=== PATIENT | female | born 1965 | race Caucasian/White ===

== ENCOUNTER 2017-03-15 11:16 | Day surgery (SDC) | payer MEDICARE, OTHER ==
[2017-03-14 10:04] VITALS: BMI 32.9
[~2017-03-15 11:16] MED LIST: LACTATED RINGERS 1,000 ML IV SCH; LIDOCAINE 1% 20 ML VIAL (10MG/ML) FOR IV START INTRADERMA PRN
[2017-03-15 11:44] VITALS: TEMP 98.9
[2017-03-15] MEDS ORDERED: PROPOFOL 10 MG/ML 20 ML VIAL IV ONE (12:31)
--- NOTE | 2017-03-15 12:38 | P.GSHP ---
History of Present Illness H&P Date: 03/15/17 Chief Complaint: Change in bowel habits Patient is a 51-year-old female who underwent previous Munson's procedure for diverticulitis. The patient underwent colostomy reversal with subsequent leak. She then underwent replacement of her colostomy bag at that time. The patient has had complaints of swelling at the ostomy site recently. She has a parastomal hernia present there. She is interested in ostomy reversal if possible. Denies rectal bleeding. Past Medical History Past Medical History: Chest Pain / Angina, Deep Vein Thrombosis (DVT), GERD/ Reflux, Hyperlipidemia, Hypertension, Myocardial Infarction ([place]), Rheumatoid Arthritis ([place]) Additional Past Medical History / Comment(s): DIVERTICULITIS," SORE ON STOMA AREA" Last Myocardial Infarction Date:: 2009 History of Any Multi-Drug Resistant Organisms: None Reported Past Surgical History: Bowel Resection, Heart Catheterization With Stent, Hysterectomy, Tonsillectomy Additional Past Surgical History / Comment(s): COLOSTOMY X2, reversal of colostomy Past Anesthesia/Blood Transfusion Reactions: No Reported Reaction Date of Last Stent Placement:: 2009 Smoking Status: Current every day smoker - Past Family History Mother Family Medical History: Cancer Father Family Medical History: Cancer Medications and Allergies Home Medications Medication Instructions Recorded Confirmed Type Famotidine [Pepcid] 20 mg PO BID #60 tab 10/15/14 03/15/17 Rx Metoprolol Tartrate [Lopressor] 25 mg PO BID #60 tab 10/22/14 03/15/17 Rx Omeprazole 40 mg PO QAM #30 capsule. 10/22/14 03/15/17 Rx Aspirin 81 mg PO DAILY 03/14/17 03/15/17 History Allergies Allergy/AdvReac Type Severity Reaction Status Date / Time Penicillins Allergy Unknown Verified 03/15/17 11:45 Childhood Surgical - Exam Vital Signs Temp Pulse Resp BP Pulse Ox 98.9 F 101 H 18 147/86 95 03/15/17 11:42 03/15/17 11:42 03/15/17 11:42 03/15/17 11:42 03/15/17 11:42 Physical exam: General: Well-developed, well-nourished HEENT: Normocephalic, sclerae nonicteric Abdomen: Nontender, nondistended Extremities: No edema Neuro: Alert and oriented Results - Labs 03/15/17 11:55 03/15/17 11:55 Diabetes panel 03/15/17 Range/Units 11:55 Sodium 141 (137-145) mmol/L Potassium 3.9 (3.5-5.1) mmol/L Chloride 103 (98-107) mmol/L Carbon Dioxide 27 (22-30) mmol/L BUN 12 (7-17) mg/dL Creatinine 0.70 (0.52-1.04) mg/dL Glucose 98 (74-99) mg/dL Calcium 9.8 (8.4-10.2) mg/dL Calcium panel 03/15/17 Range/Units 11:55 Calcium 9.8 (8.4-10.2) mg/dL Pituitary panel 03/15/17 Range/Units 11:55 Sodium 141 (137-145) mmol/L Potassium 3.9 (3.5-5.1) mmol/L Chloride 103 (98-107) mmol/L Carbon Dioxide 27 (22-30) mmol/L BUN 12 (7-17) mg/dL Creatinine 0.70 (0.52-1.04) mg/dL Glucose 98 (74-99) mg/dL Calcium 9.8 (8.4-10.2) mg/dL Adrenal panel 03/15/17 Range/Units 11:55 Sodium 141 (137-145) mmol/L Potassium 3.9 (3.5-5.1) mmol/L Chloride 103 (98-107) mmol/L Carbon Dioxide 27 (22-30) mmol/L BUN 12 (7-17) mg/dL Creatinine 0.70 (0.52-1.04) mg/dL Glucose 98 (74-99) mg/dL Calcium 9.8 (8.4-10.2) mg/dL Assessment and Plan (1) Change in bowel habits Narrative/Plan: Will proceed with colonoscopy today. Both stoma and rectum will be intubated. Tentatively plan colostomy reversal tomorrow. Current Visit: Yes Status: Acute Code(s): R19.4 - CHANGE IN BOWEL HABIT SNOMED Code(s): 575596670
--- NOTE | 2017-03-15 12:58 | P.PCN ---
Date of Procedure: 03/15/17 Procedure(s) Performed: PREOPERATIVE DIAGNOSIS: Change in bowel habits, diverticulitis POSTOPERATIVE DIAGNOSIS: Normal colon PROCEDURE: Colonoscopy ANESTHESIA: MAC SURGEON: Ray Alex M.D. SPECIMENS: None ENDOSCOPIC PROCEDURE: The patient was placed on the endoscopy table in the left decubitus position. The Olympus colonoscope was inserted into the anus and passed under direct visualization to the proximal rectal staple line. There was minimal disuse proctitis present. There was some residual stool that was evacuated manually. No polypoid lesions were identified. The scope was then inserted into the stoma and passed under direct visualization to the base of the cecum. From that point the scope was slowly withdrawn inspecting all mucosal surfaces carefully. There were no neoplastic inflammatory or polypoid lesions throughout the cecum, ascending, transverse, or descending colon. I was unable to visualize any definite diverticular orifices. At the anus the patient did have a small hemorrhoidal tag present. This measured less than 1 cm. The patient was taken to the recovery room in stable condition per anesthesia guidelines. RECOMMENDATIONS: Will proceed with planned colostomy reversal tomorrow.
[2017-03-15 13:21] VITALS: RESP 15
[2017-03-15 13:28] VITALS: BP 115/72; PULSE 85
== END 2017-03-15 14:16 | disposition home or self-care (01) ==
LOC: ORWHC2ENDO 11:16
PROVIDERS: ATTEND Surgery
DX: K64.4 Residual hemorrhoidal skin tags (principal); K62.89 Other specified diseases of anus and rectum; R19.4 Change in bowel habit; K43.5 Parastomal hernia without obstruction or gangrene; Z93.3 Colostomy status; M06.9 Rheumatoid arthritis, unspecified; I10 Essential (primary) hypertension; E78.5 Hyperlipidemia, unspecified; K21.9 Gastro-esophageal reflux disease without esophagitis; Z95.5 Presence of coronary angioplasty implant and graft; I25.2 Old myocardial infarction; Z86.718 Personal history of other venous thrombosis and embolism; Z79.82 Long term (current) use of aspirin; Z79.899 Other long term (current) drug therapy; Z88.0 Allergy status to penicillin; F17.210 Nicotine dependence, cigarettes, uncomplicated
CPT/HCPCS: 44388; J2704; 45378

== ENCOUNTER 2017-08-19 15:12 | Inpatient (IN) | payer MEDICARE, OTHER ==
[2017-08-19] MEDS ORDERED: MORPHINE SULFATE 2 MG/ML SYRINGE IVP STA (15:49)
[2017-08-19] MEDS ORDERED: ONDANSETRON ODT 4 MG TAB PO STA (15:49)
[2017-08-19] MEDS ORDERED: methylPREDNISolone SOD SUCCI 125 MG/2 ML VIAL IV STA (15:51)
[2017-08-19] MEDS ORDERED: IPRATROPIUM-ALBUTEROL 3 ML NEB INHALATION STA (15:51)
[2017-08-19] MEDS ORDERED: SODIUM CHLORIDE 0.9% 1,000 ML IV ONE ×3 (15:52→16:57)
--- NOTE | 2017-08-19 15:57 | ED ---
Chest Pain HPI - General Chief Complaint: Chest Pain Stated Complaint: Chest Pain Time Seen by Provider: 08/19/17 15:37 Source: patient Mode of arrival: wheelchair Limitations: no limitations - History of Present Illness Initial Comments: 52-year-old female presenting with acute onset lightheadedness, right-sided flank pain, nausea and vomiting, substernal chest pressure and shortness of breath. She states her symptoms awoke her from sleep at 4:30 AM. States she may have been constant all day. She denies any alleviating or exacerbating symptoms. States the chest pain is accompanied by bilateral hand numbness, which is similar to a previous [place] in 2009. He is unable to quantify the amount of episodes of emesis she has had. She states she is passing gas and having bowel movements. She denies any black or bloody stools. Patient states she has not had a primary care physician in the past 3 months and has been unable to take her chronic medications. She admits to previous history of DVT and is unsure Sever had a PE. She is unsure she's was to be on anticoagulation medicine. She admits a history of COPD and is currently still smoking. She has been out of her inhalers as well. She denies previous history of intubation. - Related Data Home Medications Medication Instructions Recorded Confirmed Aspirin EC [Ecotrin Low Dose] 81 mg PO DAILY 08/19/17 08/19/17 Cilostazol [Pletal] 50 mg PO BID 08/19/17 08/19/17 Docusate [Colace] 100 mg PO BID 08/19/17 08/19/17 HYDROcodone/APAP 10-325MG [[place] 1 tab PO Q6HR PRN 08/19/17 08/19/17 10-325] Hydrochlorothiazide [Hydrodiuril] 25 mg PO DAILY 08/19/17 08/19/17 Meloxicam [Mobic] 7.5 mg PO DAILY 08/19/17 08/19/17 Polyethylene Glycol 3350 [Miralax] 17 gm PO DAILY 08/19/17 08/19/17 Rosuvastatin [Crestor] 10 mg PO HS 08/19/17 08/19/17 Previous Rx's Medication Instructions Recorded Famotidine [Pepcid] 20 mg PO BID #60 tab 10/15/14 Metoprolol Tartrate [Lopressor] 25 mg PO BID #60 tab 10/22/14 Allergies Allergy/AdvReac Type Severity Reaction Status Date / Time amoxicillin Allergy Unknown Verified 08/19/17 15:53 Childhood Penicillins Allergy Unknown Verified 08/19/17 15:53 Childhood Review of Systems ROS Statement: Those systems with pertinent positive or pertinent negative responses have been documented in the HPI. Review of Systems Constitutional: Denies fever, chills Eyes: Denies change in vision, Denies pain Ears, nose, mouth, throat: Denies headaches, Denies sore throat Cardiovascular: Chest pain Respiratory: Shortness of breath Gastrointestinal: Abdominal Pain. Nausea and vomiting. Genitourinary: Denies hematuria, Denies infections Musculoskeletal: Denies pain, Denies swelling Integumentary: Denies rash Neurological: Denies headache, focal weakness, focal numbness Psychiatric: Denies anxiety, Denies depression Hematologic/Lymphatic: Denies easy bleeding or bruising ROS Other: All systems not noted in ROS Statement are negative. EKG Findings - EKG Comments: EKG Findings:: EKG shows sinus tachycardia at a rate of 107 bpm. MA 144 ms. QRS duration 88 ms. QT/QTc 372/496. - EKG Results: EKG: interpreted by DAISY Past Medical History Past Medical History: Chest Pain / Angina, Deep Vein Thrombosis (DVT), GERD/ Reflux, Hyperlipidemia, Hypertension, Myocardial Infarction ([place]), Rheumatoid Arthritis ([place]) Additional Past Medical History / Comment(s): DIVERTICULITIS," SORE ON STOMA AREA" Last Myocardial Infarction Date:: 2009 History of Any Multi-Drug Resistant Organisms: None Reported Past Surgical History: Bowel Resection, Heart Catheterization With Stent, Hysterectomy, Tonsillectomy Additional Past Surgical History / Comment(s): COLOSTOMY X2, reversal of colostomy Past Anesthesia/Blood Transfusion Reactions: No Reported Reaction Date of Last Stent Placement:: 2009 Past Psychological History: Anxiety, Depression, Panic Disorder Smoking Status: Current every day smoker - Past Family History Mother Family Medical History: Cancer Father Family Medical History: Cancer General Exam - General Exam Comments Initial Comments: General: Awake, alert, ill appearing HENT: Normocephalic. Atraumatic Eyes: PERRL. EOMI. No scleral icterus. No injected conjunctiva Neck: Full ROM Chest/Lungs: Wheezing bilaterally. Tachypnea. Two-word conversational dyspnea. Cardiac: Tachycardic Regular rhythm. No murmurs or rubs Abdomen/GI: Soft. Diffuse tenderness. Multiple scars and healing surgical wounds. No rigidity or guarding when distracted Musculoskeletal: Full ROM Skin: Warm, dry, intact Neurologic: A/Ox3, no weakness, no sensory deficit, no abdnormal gait, no coordination deficit Limitations: no limitations Course Vital Signs 08/19/17 08/19/17 08/19/17 15:17 17:23 17:33 Temperature 98.4 F Pulse Rate 111 H 93 95 Respiratory 22 Rate Blood Pressure 144/64 O2 Sat by Pulse 100 Oximetry 08/19/17 18:17 Temperature 99.1 F Pulse Rate 107 H Respiratory 18 Rate Blood Pressure 148/65 O2 Sat by Pulse 96 Oximetry Chest Pain MDM - MDM 52-year-old female presenting with multiple complaints. Initial exam the patient is ill-appearing. She is tachycardic but her blood pressure stable. EKG shows sinus tachycardia at a rate of 107 bpm. Wells score 3. D dimer elevated. Patient found to have an elevated troponin. Discussed heparin infusion with patient for NSTEMI. She denies any recent black or bloody stools, previous history of GI bleeding, or hematemesis. Patient's nausea and chest pain improved with medications. Levofloxacin ordered at 1715 for sepsis secondary CAP and/or intraabdominal process. Vancomycin ordered for abdominal cellulitis. Patient has unknown PCN allergy. [address] showed no evidence of pulmonary embolism. No intraabominal abscess seen. A fusiform appearance of the aorta was noted with the largest diameter being 2.5. The heparin was d/c'd. Patient had not received it yet. Spoke with Dr. Mendez who is agreeable to admission with cardiology and vascular surgery on consult. Patient is currently resting comfortably and in NAD. Her tachypnea and emesis have resolved. Disposition Clinical Impression: Sepsis, NSTEMI (non-ST elevated myocardial infarction), Lactic acidosis, Shortness of breath, Cellulitis, Ascending aorta dilation Disposition: ADMITTED IP TO THIS HOSP Condition: Good Referrals: None,Stated [Primary Care Provider] - 1-2 days Decision to Admit Reason: Admit from EC Decision Date: 08/19/17 Decision Time: 18:41
[2017-08-19] MEDS ORDERED: MORPHINE SULFATE 2 MG/ML SYRINGE IVP PRN (16:02)
[2017-08-19] MEDS ORDERED: ONDANSETRON 4 MG/2 ML VIAL IVP STA (16:05)
[2017-08-19 16:14] LABS: Anisocytosis Slight; Basophils % (A) 0 %; Eosinophils % (A) 0 %; HCT 40.3 % (34.0-46.0); HGB 13.3 gm/dL (11.4-16.0); Lymphocytes # (A) 1.2 k/uL (1.0-4.8); Lymphocytes % (A) 11 %; MCH 27.9 pg (25.0-35.0); MCV 84.5 fL (80.0-100.0); Mean Platelet Volume 7.2; Monocytes # (A) 0.3 k/uL (0-1.0); Monocytes % (A) 3 %; Neutrophils # (A) 9.5 k/uL (1.3-7.7); Neutrophils % (A) 85 %; Platelet Count 321 k/uL (150-450); RBC 4.77 m/uL (3.80-5.40); WBC 11.2 k/uL (3.8-10.6)
[2017-08-19 16:20] LABS: ALT 26 U/L (9-52); AST 25 U/L (14-36); Albumin 4.6 g/dL (3.5-5.0); Alkaline Phosphatase 104 U/L (38-126); Anion Gap 16 mmol/L; Bilirubin, Delta 0.3 mg/dL (0.0-0.2); Blood Urea Nitrogen 17 mg/dL (7-17); Calcium 9.9 mg/dL (8.4-10.2); Carbon Dioxide 22 mmol/L (22-30); Chloride 103 mmol/L (98-107); Glucose 148 mg/dL (74-99); Lipase 43 U/L (23-300); Magnesium 1.7 mg/dL (1.6-2.3); Sodium 141 mmol/L (137-145); Total Bilirubin 0.3 mg/dL (0.2-1.3); Total Protein 7.6 g/dL (6.3-8.2)
[2017-08-19] MEDS ORDERED: MECLIZINE 12.5 MG TAB PO STA (16:56)
[2017-08-19] MEDS ORDERED: ASPIRIN 325 MG TAB PO STA (16:57)
[2017-08-19] MEDS ORDERED: HEPARIN SODIUM,PORCINE 5,000 UNIT/ML 1 ML VIAL IV ONE (16:58)
[2017-08-19] MEDS ORDERED: HEPARIN SODIUM,PORCINE 5,000 UNIT/ML 1 ML VIAL IV PRN (16:58)
[2017-08-19] MEDS ORDERED: HEPARIN SOD,PORK IN 0.45% NACL 25,000 UNIT in 0.45% NACL 1 500ML.BAG IV SCH (17:00)
[2017-08-19] MEDS ORDERED: LEVOFLOXACIN 750MG-D5W PMX 750 MG in DEXTROSE/WATER 1 150ML.BAG IVPB STA (17:12)
[2017-08-19] MEDS ORDERED: VANCOMYCIN IV PER PHARMACY 1 EACH MISC MISCELLANE PRN ×2 (17:17→18:41)
--- NOTE | 2017-08-19 17:24 | XR ---
EXAMINATION TYPE: XR chest 2V DATE OF EXAM: 08/19/2017 COMPARISON: 80 10/15/2014 INDICATION: Pain TECHNIQUE: Frontal and lateral views of the chest are obtained. FINDINGS: The heart size is normal. The pulmonary vasculature is normal. The lungs are clear. IMPRESSION: 1. No acute pulmonary process.
--- NOTE | 2017-08-19 17:39 | CT ---
CT CHEST FOR PULMONARY EMBOLISM. EXAMINATION TYPE: CT angio chest DATE OF EXAM: 08/19/2017 INDICATION: Patient complains of dizziness and chest pain. CT DLP: 328.2 mGycm, Automated exposure control for dose reduction was used. CONTRAST: Patient injected with 100 mL of Isovue 370. COMPARISON: 09/22/2014 TECHNIQUE: CT of the chest is performed on a spiral scan at 2 mm thick sections. Study is performed with intravenous contrast timed for evaluation for pulmonary embolism. This will limit additional po rtions of the evaluation. 3-D MIP images reconstructed by the technologist are reviewed on the compu ter in the coronal and sagittal planes. FINDINGS: No persistent filling defects are evident to suggest an acute pulmonary embolism. No mediastinal or hilar adenopathy enlarged by CT criteria is evident. The ascending aorta diameter at the level of the main pulmonary artery is 2.8 cm. The main pulmonary artery diameter at the bifur cation is 2.8 cm. Lung windows are clear. Limited CT section through the upper abdomen are unremarkable. IMPRESSIONS: 1. No acute pulmonary embolism.
--- NOTE | 2017-08-19 17:44 | CT ---
EXAMINATION TYPE: CT abdomen pelvis w con DATE OF EXAM: 08/19/2017 COMPARISON: NONE INDICATION: Patient complains of dizziness, nausea, vomiting, and abdominal pain. DLP: 1368.1 mGycm, Automated exposure control for dose reduction was used. CONTRAST: 100 mL of Isovue 370. Study performed without Oral Contrast TECHNIQUE: Axial images were obtained from above the diaphragm to the pubic rami in the axial plane a t 5 mm thick sections. Reconstructed images are reviewed on the computer in the coronal plane. FINDINGS: Limited CT sections are obtained the lung bases. The lung bases are clear. CT ABDOMEN: Liver: Normal Spleen: Normal Pancreas: Normal Adrenal glands: Left adrenal gland is enlarged and measures 1.8 cm and has a low-density area central ly measuring approximately 9 Hounsfield units. This was present previously and appears stable. Gallbladder: Normal Kidneys: No masses are evident. No hydronephrosis is present. No cysts are present. Delayed images were obtained through the kidneys, which remain unremarkable. Aorta: Vascular calcification is within the aorta. There is some fusiform prominence of the mid abdo shiraz aorta measuring 2.5 cm in AP dimension. This terminates above the bifurcation and begins below the level the renal arteries. Inferior vena cava: Normal. CT PELVIS: Loops of bowel within the abdomen and pelvis are normal. There are loops of bowel which are incom pletely distended or lack oral contrast limiting their evaluation. Appendix: Not identified. No suspicious tubular structures are evident. Urinary bladder: Normal. Genitourinary structures: Uterus and ovaries are not identified. Osseous structures: No suspicious lytic or sclerotic lesions. IMPRESSIONS: 1. No suspicious acute changes. 2. Fusiform prominence mid abdominal aorta with an AP diameter of 2.5 cm somewhat greater than compar colby. 3. Stable left adrenal lesion
[2017-08-19 18:44] LABS: Appearance,Urine Clear (Clear); Bilirubin,Urine Negative (Negative); Blood,Urine Negative (Negative); Color,Urine Light Yellow; Glucose,Urine (UA) Negative (Negative); Ketones,Urine Negative (Negative); Leukocyte Esterase,Urine Negative (Negative); Nitrite,Urine Negative (Negative); PH, Urine 7.5 (5.0-8.0); Protein,Urine Negative (Negative); Specific Gravity,Urine 1.035 (1.001-1.035); Urobilinogen,Urine <2.0 mg/dL (<2.0)
[2017-08-19] MEDS ORDERED: NITROGLYCERIN SL TABS 0.4 MG TAB SUBLINGUAL PRN (18:48)
[2017-08-19] MEDS ORDERED: VANCOMYCIN 1,750 MG in SODIUM CHLORIDE 0.9% 250 ML IVPB STA (19:26)
[2017-08-19] MEDS ORDERED: ACETAMINOPHEN TAB 500 MG TAB PO PRN (22:08)
[2017-08-19] MEDS ORDERED: TEMAZEPAM 15 MG CAP PO PRN (22:08)
[2017-08-19 22:26] LABS: Creatine Kinase MB 2.1 ng/mL (0.0-2.4)
[2017-08-19 22:30] LABS: Troponin I 0.061 ng/mL (0.000-0.034)
[2017-08-19] MEDS: MORPHINE SULFATE 2 MG/ML SYRINGE IV PRN (23:25)
[2017-08-19] MEDS: DOCUSATE 100 MG CAP PO SCH (23:28)
[2017-08-19] MEDS: METOPROLOL TARTRATE 25 MG TAB PO SCH (23:28)
[2017-08-19] MEDS: FAMOTIDINE 20 MG TAB PO SCH (23:28)
[2017-08-19] MEDS: ATORVASTATIN 20 MG TAB PO SCH (23:28)
[2017-08-19] MEDS: CILOSTAZOL 100 MG TAB PO SCH (23:29)
--- NOTE | 2017-08-19 23:55 | HP ---
HISTORY AND PHYSICAL DATE OF SERVICE: 08/19/2017 CHIEF COMPLAINT: Chest pain. HISTORY OF PRESENT ILLNESS: This 52-year-old woman with a past medical history of multiple medical problems including a history of CAD, history of DVT, GERD, hypertension, rheumatoid arthritis, history of CAD with stent, history of colostomy x2, reversal of colostomy, not being followed by any primary physician in the outpatient setting, currently was complaining of chest pain this morning. The patient also had chest pain in the anterior part of the chest with also upper abdominal pain. The patient has some vomiting also. The patient also had multiple symptomatology including bilateral hand numbness and vomiting as well. The patient came to [facility] and was admitted for further evaluation and treatment. The patient underwent abdominal and pelvis CT scan which showed no suspicious acute changes and abdominal artery with AP diameter 2.5 cm was noted. Chest CTA was also noted, which showed no acute pulmonary embolism. The troponins were found to be 0.050. The patient was admitted for further evaluation and treatment. Lactic acid elevated at 2.1, improved later. There is no history of fever, rigors. No history of headache, loss of consciousness or seizures. PAST MEDICAL HISTORY: History of CAD, stent, history of DVT, GERD, hypertension, myocardial infarction , rheumatoid arthritis. HOME MEDICATIONS: 1. MiraLAX 17 g daily. 2. [place] 10 mg every 6 hours. 3. Colace 100 mg b.i.d. 4. Ecotrin 81 mg. 5. Crestor 10 mg at bedtime. 6. Pepcid 20 mg b.i.d. 7. Lopressor 25 mg b.i.d. 8. Mobic 7.5 q.i.d. 9. HydroDIURIL 25 mg daily. 10.Pletal 50 mg p.o. b.i.d. ALLERGIES: MORPHINE AND PENICILLIN. FAMILY HISTORY: History of cancer in the family. SOCIAL HISTORY: History of smoking on a daily basis. Occasional alcohol intake. REVIEW OF SYSTEMS: ENT: No diminished hearing or vision. CARDIOVASCULAR: As mentioned. RESPIRATORY: As mentioned. GI: No dysuria or hematuria. NERVOUS SYSTEM: No numbness or weakness. ALLERGY/IMMUNOLOGY: As mentioned. ENDOCRINE: As mentioned earlier. CONSTITUTIONAL: As mentioned earlier. PHYSICAL EXAMINATION: Alert oriented x3. Pulse is 107, blood pressure 140/62, respiration 18 temperature 99.1, pulse ox 96 on room air. HEENT: Conjunctivae normal. Oral mucosa moist. NECK: No jugular venous distention. No lymph node enlargement. CARDIOVASCULAR: S1 and S2 muffled. LUNGS: Breath sounds diminished at the bases. No rhonchi no crackles. ABDOMEN: Soft. Mild diffuse discomfort on palpation. No mass palpable. Colostomy present. Minimal drainage also present. SKIN: No ulcer or rash. LYMPHATIC: No lymph nodes palpable in the neck or axillae. LAB STUDIES: WBC 10, hemoglobin 13.2, sodium 141, potassium 4, lactic acid 3.1, troponin 0.050. ASSESSMENT: 1. Chest pain, possible acute non ST-segment myocardial infarction. Troponin 0.050. 2. Abdominal pain, vomiting, possible acute gastritis. 3. Elevated lactic acid, possibly related to dehydration, rule out sepsis. 4. Increased WBC. 5. Colostomy and colostomy reversal. 6. History of CAD stent. 7. History of deep vein thrombosis. 8. Gastroesophageal reflux disease. 9. History of hypertension. 10.History of myocardial infarction. 11.History of rheumatoid arthritis. 12.History of bowel systems. 13.Depression. 14.Panic disorder. 15.History of continued ongoing nicotine dependence. 16. aorta 2.5 cm. RECOMMENDATIONS AND DISCUSSION: This 52-year-old woman who presented with multiple complex medical issues. We will monitor the patient closely. Continue the current management and unstable angina protocol. We will obtain cardiology consultation. Also recommend Dr. Alex to evaluate colostomy and colostomy wounds also. Other than that, I would recommend resume the rest of the medications. Empiric antibiotics also will be given. Cultures will be obtained. Prognosis guarded because of multiple complex medical conditions. Further recommendations to follow. Follow up with the primary physician closely after discharge. MMODL / IJN: [id number] / NOA
[2017-08-20] MEDS: HEPARIN SODIUM,PORCINE 5,000 UNIT/ML 1 ML VIAL SQ SCH ×3 (00:44→15:55)
[2017-08-20 04:01] LABS: Anisocytosis Slight; Basophils % (A) 0 %; Eosinophils % (A) 0 %; HCT 34.9 % (34.0-46.0); HGB 10.9 gm/dL (11.4-16.0); Lymphocytes % (A) 8 %; MCH 26.7 pg (25.0-35.0); MCHC 31.3 g/dL (31.0-37.0); MCV 85.2 fL (80.0-100.0); Mean Platelet Volume 8.1; Monocytes # (A) 0.4 k/uL (0-1.0); Monocytes % (A) 4 %; Neutrophils # (A) 10.5 k/uL (1.3-7.7); Neutrophils % (A) 87 %; Platelet Count 288 k/uL (150-450); RBC 4.09 m/uL (3.80-5.40); RDW 16.7 % (11.5-15.5)
[2017-08-20 04:13] LABS: Anion Gap 9 mmol/L; Blood Urea Nitrogen 11 mg/dL (7-17); Calcium 8.6 mg/dL (8.4-10.2); Carbon Dioxide 23 mmol/L (22-30); Chloride 108 mmol/L (98-107); Cholesterol 152 mg/dL (<200); Glucose 129 mg/dL (74-99); HDL Cholesterol 41 mg/dL (40-60); LDL Cholesterol,Calculated 91 mg/dL (0-99); Potassium 3.8 mmol/L (3.5-5.1); Sodium 140 mmol/L (137-145); Triglycerides 100 mg/dL (<150)
[2017-08-20 04:26] LABS: Troponin I 0.039 ng/mL (0.000-0.034)
[2017-08-20 06:01] LABS: Anisocytosis Slight; HCT 32.4 % (34.0-46.0); HGB 10.7 gm/dL (11.4-16.0); MCH 27.9 pg (25.0-35.0); MCHC 33.1 g/dL (31.0-37.0); MCV 84.5 fL (80.0-100.0); Mean Platelet Volume 7.6; Platelet Count 280 k/uL (150-450); RBC 3.83 m/uL (3.80-5.40); RDW 16.7 % (11.5-15.5); WBC 13.4 k/uL (3.8-10.6)
[2017-08-20] MEDS: MORPHINE SULFATE 2 MG/ML SYRINGE IV PRN (07:30)
--- NOTE | 2017-08-20 09:59 | CONS ---
CONSULTATION CHIEF COMPLAINT: Vomiting and elevated troponin. This is a 52-year-old lady with history of coronary artery disease, status post prior angioplasty in the setting of myocardial infarction in 2010, who does not follow with a field clinical engineer regularly, hypertension, dyslipidemia, who presented to the hospital primarily complaining of lightheadedness, right-sided flank pain, nausea and vomiting and also had some shortness of breath and chest pain. These symptoms woke her up at around 430 in the morning, sudden onset, persisted all day yesterday, necessitating her coming to the emergency room, which is what she did yesterday. She has been in the ER and gradually had become pain-free. Her troponins have come back mildly elevated at 0.05, 0.06 and 0.03. EKG does not reveal acute ischemic changes. Her white cell count is elevated at 13.4. The vomiting and the lower abdominal pain have improved. Patient had a CT scan of the chest that was negative for aortic aneurysm, dissection of pulmonary embolism, showed a CT scan of the abdomen that is also negative. PAST MEDICAL HISTORY: Significant for coronary artery disease, hypertension, dyslipidemia. MEDICATIONS: At home include aspirin, Colace, MiraLAX, [place], Crestor, Pepcid, Lopressor, Mobic, HydroDIURIL, and Pletal. Allergic to AMOXICILLIN and PENICILLIN. FAMILY HISTORY: Negative for premature coronary artery disease. SOCIAL HISTORY: Negative for current smoking, EtOH abuse, or drug abuse. REVIEW OF SYSTEMS: HEENT is unremarkable. CARDIAC: As described above. RESPIRATORY: Negative. GI: As described above. GENITOURINARY: Negative. ALLERGY/IMMUNOLOGY: Negative. SKIN: Negative. MUSCULOSKELETAL: Negative. ENDOCRINE: Negative. HEMATOLOGICAL: Negative. DERMATOLOGICAL: Negative. CONSTITUTIONAL: Negative. ONCOLOGICAL: Negative. MEDIA ARTS PROFESSOR: Negative Rest of the system review is not relevant. PHYSICAL EXAM: Patient is comfortable at rest. Vital signs are stable. O2 SAT is 97% on room air. There is no jugular venous distention. Carotid upstroke is normal. There is no bruit. Chest exam reveals good air entry bilaterally. Heart exam reveals first and second heart sounds. No gallop. No murmur. No rub. Abdomen is soft, nontender. Exam of extremities did not reveal any edema. Peripheral pulses are felt. LABS: Show an elevated white cell count, hemoglobin is low at 10.7, potassium is 3.8. Troponins are mildly elevated. ASSESSMENT: 1. Right lower abdominal, right flank pain of unclear etiology. Workup so far is negative. 2. Elevated troponin. 3. History of coronary artery disease, status post angioplasty. 4. Hypertension. 5. Dyslipidemia. PLAN: I am going to obtain a 2D echo on her to assess her LV function and wall motion. Continue with the current optimal medical therapy for CAD including aspirin, statins, resume the beta john she was on. Continue the beta blockers and obtain a 2D echo both to assess LV function and wall motion. Currently patient is being treated with IV antibiotics. Once her symptoms get better, we may either consider cardiac catheterization to rule out underlying significant obstructive heart disease or may perform a Lexiscan. MMODL / IJN: [id number] /
[2017-08-20] MEDS: DOCUSATE 100 MG CAP PO SCH ×2 (10:56→20:37)
[2017-08-20] MEDS: VANCOMYCIN 1,500 MG in SODIUM CHLORIDE 0.9% 250 ML IVPB SCH ×2 (10:56→20:36)
[2017-08-20] MEDS: HYDROCHLOROTHIAZIDE 25 MG TAB PO SCH (10:56)
[2017-08-20] MEDS: POLYETHYLENE GLYCOL 3350 17 GM POWD.PACK PO SCH (10:56)
[2017-08-20] MEDS: ASPIRIN 325 MG TAB PO SCH (10:57)
[2017-08-20] MEDS: FAMOTIDINE 20 MG TAB PO SCH ×2 (10:57→20:37)
[2017-08-20] MEDS: PANTOPRAZOLE 40 MG TABLET PO SCH (10:58)
[2017-08-20] MEDS: METOPROLOL TARTRATE 25 MG TAB PO SCH ×2 (10:58→20:36)
[2017-08-20] MEDS: CILOSTAZOL 100 MG TAB PO SCH ×2 (10:58→21:39)
[2017-08-20] MEDS: ALPRAZolam 0.25 MG TAB PO PRN ×2 (11:00→18:01)
--- NOTE | 2017-08-20 13:23 | ECHOF ---
Referral Reason:nstemi MEASUREMENTS -------- HEIGHT: 157.5 cm WEIGHT: 81.6 kg BP: 119/56 IVSd: 1.2 cm (0.6 - 1.1) LVIDd: 5.0 cm (3.9 - 5.3) LVPWd: 1.3 cm (0.6 - 1.1) IVSs: 1.5 cm LVIDs: 4.5 cm LVPWs: 1.3 cm LA Diam: 3.6 cm (2.7 - 3.8) LAESV Index (A-L): 20.77 ml/m Ao Diam: 2.6 cm (2.0 - 3.7) AV Cusp: 1.9 cm (1.5 - 2.6) LA Diam: 3.7 cm (2.7 - 3.8) MV EXCURSION: 13.275 mm (> 18.000) MV EF SLOPE: 82 mm/s (70 - 150) EPSS: 1.2 cm MV E Misha: 0.75 m/s MV DecT: 221 ms MV A Misha: 0.96 m/s MV E/A Ratio: 0.78 RAP: 5.00 mmHg RVSP: 10.65 mmHg FINDINGS -------- Sinus rhythm. This was a techncally difficult study with suboptimal views, , Lumason utilized for enhancement of im ages. The left ventricular size is normal. There is borderline concentric left ventricular hypertrophy. Overall left ventricular systolic function is low-normal with, an EF between 50 - 55 %. Basal infer ior LV wall motion is hypokinetic. The right ventricle is normal in size. The left atrial size is normal. The right atrial size is normal. 5.0mg OF Lumason UTLIZED: 2 OR MORE WALL SEGMENTS NOT VISUALIZED. There is mild aortic valve sclerosis. There is no evidence of aortic regurgitation. Mild mitral annular calcification present. Mild mitral regurgitation is present. No regurgitation noted There is no evidence of pulmonary hypertension. The right ventricular syst olic pressure, as measured by Doppler, is 10.65mmHg. There is no pulmonic regurgitation present. The aortic root size is normal. There is a small, generalized pericardial effusion present. CONCLUSIONS -------- 1. This was a techncally difficult study with suboptimal views, , Lumason utilized for enhancement of images. 2. The left ventricular size is normal. 3. There is borderline concentric left ventricular hypertrophy. 4. The right ventricle is normal in size. 5. 5.0mg OF Lumason UTLIZED: 2 OR MORE WALL SEGMENTS NOT VISUALIZED. 6. There is mild aortic valve sclerosis. 7. Mild mitral annular calcification present. 8. Mild mitral regurgitation is present. 9. No regurgitation noted 10. There is no evidence of pulmonary hypertension. 11. The right ventricular systolic pressure, as measured by Doppler, is 10.65mmHg. 12. There is no pulmonic regurgitation present. 13. The aortic root size is normal. 14. There is a small, generalized pericardial effusion present. ASSISTANT PROFESSOR OF BIOLOGY: Netta Johnson RDCS
--- NOTE | 2017-08-20 16:44 | CONS ---
CONSULTATION This is a 52-year-old female. She came to the emergency room with a history of some chest pain and was admitted for further evaluation. Patient had a CT scan of the abdomen which showed a 2.5 cm infrarenal abdominal aortic aneurysm. No evidence of dissection or leak. Patient has history of coronary artery disease, history of DVT, history of hypertension. Surgically, the patient has a history of diverticulitis and for that patient had a colectomy done in the past. On examination, patient was seen in the emergency room. NECK: Supple. No bruit appreciated. CHEST: Clear on auscultation. ABDOMEN: Soft. Patient has multiple abdominal incisions, healed. Femoral pulses are palpable bilaterally. The patient has no peritoneal signs. Abdomen is soft. CT scan of abdomen shows infrarenal abdominal aortic aneurysm. At this point the aneurysm is small. It does not leak. No evidence of dissection. There is no role of surgical intervention at this point. Patient can be followed up in my office. MMODL / IJN: [id number] /
--- NOTE | 2017-08-20 17:36 | P.GSCN ---
History of Present Illness Consult date: 08/20/17 Reason for Consult: Abdominal wound History of present illness: Patient known to our service from previous colostomy and subsequent colostomy reversal. Patient developed a wound in the left lower quadrant postoperatively that has been slow to heal. She was being seen by home care but apparently moved recently and was discharged from home care. Came into the hospital complaining of chest pain, nausea, vomiting, some epigastric discomfort. The symptoms have since resolved since her ER stay. Only has minimal discharge from the 2 wound sites in the left lower quadrant. Denies fevers. Review of Systems The patient denies any acute changes in vision or hearing, no dysphagia or odynophagia, no chest pain or shortness of breath, no dysuria or hematuria, no headache, no runny nose, no rectal bleeding or melena, no unexplained weight loss Past Medical History Past Medical History: Chest Pain / Angina, COPD, Deep Vein Thrombosis (DVT), GERD/Reflux, Hyperlipidemia, Hypertension, Myocardial Infarction ([place]), Rheumatoid Arthritis ([place]) Additional Past Medical History / Comment(s): Uterine cancer with surgery, diverticulitis with surgeries/colostomy now reversed with poor healing-being followed by Dr. Alex, UTI/ blood infection after one of her bowel surgeries with extended hospitalization, 2013 possible seizure, vertigo, bilateral carpal tunnel syndrome, bilateral lower leg DVTs, constipation. Last Myocardial Infarction Date:: 2009 History of Any Multi-Drug Resistant Organisms: None Reported Past Surgical History: Bowel Resection, Heart Catheterization With Stent, Hysterectomy, Tonsillectomy Additional Past Surgical History / Comment(s): 4 bowel surgeries, COLOSTOMY X2, reversal of colostomy, colonoscopies. Past Anesthesia/Blood Transfusion Reactions: No Reported Reaction Date of Last Stent Placement:: 2009 Smoking Status: Current every day smoker - Past Family History Mother Family Medical History: Cancer Father Family Medical History: Cancer Medications and Allergies Home Medications Medication Instructions Recorded Confirmed Type Famotidine [Pepcid] 20 mg PO BID #60 tab 10/15/14 08/19/17 Rx Metoprolol Tartrate [Lopressor] 25 mg PO BID #60 tab 10/22/14 08/19/17 Rx Aspirin EC [Ecotrin Low Dose] 81 mg PO DAILY 08/19/17 08/19/17 History Cilostazol [Pletal] 50 mg PO BID 08/19/17 08/19/17 History Docusate [Colace] 100 mg PO BID 08/19/17 08/19/17 History HYDROcodone/APAP 10-325MG [[place] 1 tab PO Q6HR PRN 08/19/17 08/19/17 History 10-325] Hydrochlorothiazide [Hydrodiuril] 25 mg PO DAILY 08/19/17 08/19/17 History Meloxicam [Mobic] 7.5 mg PO DAILY 08/19/17 08/19/17 History Polyethylene Glycol 3350 [Miralax] 17 gm PO DAILY 08/19/17 08/19/17 History Rosuvastatin [Crestor] 10 mg PO HS 08/19/17 08/19/17 History Allergies Allergy/AdvReac Type Severity Reaction Status Date / Time amoxicillin Allergy Unknown Verified 08/19/17 15:53 Childhood Penicillins Allergy Unknown Verified 08/19/17 15:53 Childhood Surgical - Exam Vital Signs Temp Pulse Resp BP Pulse Ox 98.4 F 111 H 22 144/64 100 08/19/17 15:17 08/19/17 15:17 08/19/17 15:17 08/19/17 15:17 08/19/17 15:17 Physical exam: General: Well-developed, well-nourished HEENT: Normocephalic, sclerae nonicteric Abdomen: Nontender, nondistended, 2 small wounds left lower quadrant with minimal serosanguineous drainage each one measuring less than 1 m in size. Extremities: No edema Neuro: Alert and oriented Results - Labs 08/20/17 05:54 08/20/17 03:51 Abnormal Lab Results - Last 24 Hours (Table) 08/19/17 08/20/17 08/20/17 Range/Units 21:36 03:51 03:51 WBC (3.8-10.6) k/uL Hgb (11.4-16.0) gm/dL Hct (34.0-46.0) % RDW (11.5-15.5) % Neutrophils # (1.3-7.7) k/uL Chloride 108 H (98-107) mmol/L Glucose 129 H (74-99) mg/dL Troponin I 0.061 H* 0.039 H* (0.000-0.034) ng/mL 08/20/17 08/20/17 Range/Units 03:51 05:54 WBC 12.0 H 13.4 H (3.8-10.6) k/uL Hgb 10.9 L 10.7 L (11.4-16.0) gm/dL Hct 32.4 L (34.0-46.0) % RDW 16.7 H 16.7 H (11.5-15.5) % Neutrophils # 10.5 H (1.3-7.7) k/uL Chloride (98-107) mmol/L Glucose (74-99) mg/dL Troponin I (0.000-0.034) ng/mL Microbiology - Last 24 Hours (Table) 08/19/17 18:25 Urine Culture - Preliminary Urine,Voided 08/19/17 23:34 Wound Culture - Preliminary Abdomen Diabetes panel 08/20/17 Range/Units 03:51 Sodium 140 (137-145) mmol/L Potassium 3.8 (3.5-5.1) mmol/L Chloride 108 H (98-107) mmol/L Carbon Dioxide 23 (22-30) mmol/L BUN 11 (7-17) mg/dL Creatinine 0.60 (0.52-1.04) mg/dL Glucose 129 H (74-99) mg/dL Calcium 8.6 (8.4-10.2) mg/dL Triglycerides 100 (<150) mg/dL HDL Cholesterol 41 (40-60) mg/dL Calcium panel 08/20/17 Range/Units 03:51 Calcium 8.6 (8.4-10.2) mg/dL Pituitary panel 08/20/17 Range/Units 03:51 Sodium 140 (137-145) mmol/L Potassium 3.8 (3.5-5.1) mmol/L Chloride 108 H (98-107) mmol/L Carbon Dioxide 23 (22-30) mmol/L BUN 11 (7-17) mg/dL Creatinine 0.60 (0.52-1.04) mg/dL Glucose 129 H (74-99) mg/dL Calcium 8.6 (8.4-10.2) mg/dL Adrenal panel 08/20/17 Range/Units 03:51 Sodium 140 (137-145) mmol/L Potassium 3.8 (3.5-5.1) mmol/L Chloride 108 H (98-107) mmol/L Carbon Dioxide 23 (22-30) mmol/L BUN 11 (7-17) mg/dL Creatinine 0.60 (0.52-1.04) mg/dL Glucose 129 H (74-99) mg/dL Calcium 8.6 (8.4-10.2) mg/dL Assessment and Plan (1) Open abdominal wall wound Narrative/Plan: Continue dry dressings over the wound site for now. Patient will follow-up with me in the office post discharge. Current Visit: Yes Status: Acute Code(s): S31.109A - UNSP OPN WND ABD WALL, UNSP Q W/O PENET PERIT CAV, INIT SNOMED Code(s): 617291979
[2017-08-20] MEDS: NICOTINE 21MG/24HR PATCH TRANSDERM SCH (17:57)
[2017-08-20] MEDS ORDERED: LEVOFLOXACIN 500MG-D5W PMX 500 MG in DEXTROSE/WATER 1 100ML.BAG IVPB SCH (18:00)
[2017-08-20] MEDS: HYDROcodone/APAP 10-325MG 1 EACH TAB PO PRN (18:01)
--- NOTE | 2017-08-20 19:35 | PN ---
PROGRESS NOTE DATE OF SERVICE: 08/20/2017 This 52-year-old woman who was admitted with chest pain, acute mzr-MM-diiyfbf-elevation myocardial infarction also had abdominal pain. Patient also had elevated troponin. Multiple consultants are following the patient closely, including Dr. Malhotra and Dr. Castillo from Vascular Surgery. Dr. Malhotra recommended continuing the current medications and Dr. Castillo has recommended followup in the outpatient setting. A 2D echo with Doppler was done which showed preserved ejection fraction of 50% to 55%. No chest pain. No palpitation. On exam, alert and oriented x3. Pulse is 72, blood pressure 94/58, respiration 18, temperature 98.4, pulse ox 94% on room air. HEENT: Conjunctivae normal. NECK: No jugular venous distention. CARDIOVASCULAR SYSTEM: S1, S2 muffled. RESPIRATORY SYSTEM: Breath sounds diminished at the bases. No rhonchi. No crackles. ABDOMEN: Soft, non-tender. LEGS: No edema. No swelling. NERVOUS SYSTEM: No focal deficit. LABS: WBC 13.4, hemoglobin 10.7. UA unremarkable. ASSESSMENT: 1. Chest pain, possible acute zfy-JL-xbkzzbd-elevation myocardial infarction, troponin 0.050. 2. Abdominal pain and vomiting, possibly acute gastritis. 3. Elevated lactic acid, possibly related to dehydration. Rule out sepsis. 4. Increased white count. 5. Colostomy and colostomy reversal. 6. History of coronary artery disease, stent. 7. History of deep vein thrombosis. 8. Gastroesophageal reflux disease. 9. Hypertension. 10.History of myocardial infarction. 11.History of rheumatoid arthritis. 12.History of irritable bowel syndrome. 13.Depression. 14.Panic disorder. 15.History of continued ongoing nicotine dependence. 16.Abdominal aortic aneurysm 2 cm, small and not leaking. RECOMMENDATIONS AND DISCUSSION: I recommend to continue current medication, continue symptomatic treatment. Recommend followup with Cardiology and Pulmonology. Empiric antibiotics. Troponins are noted. Otherwise, infectious disease evaluation also has been sought. Further recommendations to follow. See orders for further details. Prognosis guarded. MMODL / IJN: [id number] /
[2017-08-20] MEDS: ATORVASTATIN 20 MG TAB PO SCH (20:37)
[2017-08-21] MEDS: HEPARIN SODIUM,PORCINE 5,000 UNIT/ML 1 ML VIAL SQ SCH ×5 (00:33→23:11)
--- NOTE | 2017-08-21 06:25 | CONS ---
CONSULTATION DATE OF SERVICE: 08/20/2017. REASON FOR CONSULTATION: Sepsis. HISTORY OF PRESENT ILLNESS: The patient is a 52-year-old female with past medical history significant for the diverticulitis requiring colostomy, status post subsequent removal with nonhealing wound abdominal area. The patient presenting to the ER at [facility] yesterday with chief complaints of acute onset of lightheadedness, right-sided flank pain, nausea and vomiting, some substernal chest pain and shortness of breath. The patient woke up with these symptoms, and symptoms persisted throughout the day. For the same reason, the patient has been evaluated by the ER physician. On arrival to the ER, the patient has been afebrile. Highest temperature has been 99.1. The patient did have elevated white count of 11 to 12,000. A UA has been negative. The patient did have a CT abdomen and pelvis which did show infrarenal abdominal aortic aneurysm, but no other abnormality. CT angiogram was negative for PE or any consolidation. The patient has been admitted to the hospital. Infectious disease was consulted with concern for possible sepsis. The patient did have a nonhealing wound to the abdominal wall from the previous colostomy. Culture has been obtained from the same, which are currently showing gram-positive cocci and the patient is currently on a combination of vancomycin and Levaquin. REVIEW OF SYSTEMS: CONSTITUTIONAL: Positive for weakness. No high-grade fever. EYES no complaint. ENT no complaint. Respiratory as per HPI Cardiovascular as per HPI. Genitourinary: No complaint. Gastrointestinal: As per HPI. Musculoskeletal: No complaint. Integumentary: No complaint. Psychological no complaint. Endocrine no complaint. Neurologic no complaint. PAST MEDICAL HISTORY: Significant for DVT, angina, gastroesophageal reflux disease, rheumatoid arthritis, OR, hypertension, hyperlipidemia, diabetes mellitus. PAST SURGICAL HISTORY: Bowel resection, colostomy subsequently reversal, PTCA with stent, hysterectomy, tonsillectomy. SOCIAL HISTORY: Current everyday smoker. No drinking or drug use. FAMILY HISTORY: Both parents with history of cancer of unknown type. ALLERGIES: PENICILLIN. No history of anaphylaxis. MEDICATION: The patient is currently on Tylenol, Ovid, Xanax, aspirin, Lipitor, Colace, Pepcid, heparin, hydrochlorothiazide, Levaquin, Lopressor, morphine sulfate, nicotine patch, Protonix, MiraLAX, Restoril and vancomycin pharmacy to dose. EXAMINATION: Blood pressure 132/60 with a pulse of 80, temperature 97.8. She is 93% on room air. General description is a middle aged female lying in bed in no distress. No tachypnea or accessory muscles of respiration use. HEENT: Shows pallor. No scleral icterus. Oral mucosa membranes dry. No pharyngeal erythema or thrush. NECK: Trachea central. No thyromegaly. Lungs unlabored breathing. Clear to auscultation anteriorly. No wheeze or crackles. HEART S1, S2. Regular rate. ABDOMEN: Soft wound small less than 1 cm no significant slough tissue surrounding erythema or drainage. EXTREMITIES: No edema of the feet. SKIN examination: No rash or mass palpable. NEUROLOGICAL patient is awake, alert. Mood and affect normal. LABS: Hemoglobin is 10.7, white count 13.4 with a BUN of 11, creatinine 0.60. Urine has been negative. CT chest, abdominal as mentioned above. IMPRESSION/PLAN: The patient admitted to the hospital with nonspecific symptoms of lightheadedness, nausea and vomiting. The patient did have elevated white count, but no fever. CT angiogram was negative for PE or pneumonia. Abdominal pelvis CT did not show any acute changes. The patient did have a small non-healed wound to the abdominal area with no significant slough tissue or cellulitis with blood culture showing gram-positive cocci. PLAN: 1. We will keep the patient on vancomycin, pharmacy to dose while waiting for the abdominal wound culture to finalize. 2. We will review the CT with the radiologist to make sure no evidence of any deep collections associated with these wounds. 3. We will follow up on clinical condition to further adjust medication if needed. Thank you for this consultation. Will follow this patient along with you. MMODL / IJN: [id number] /
[2017-08-21 06:38] LABS: Anisocytosis Slight; Basophils # (A) 0.1 k/uL (0-0.2); Basophils % (A) 1 %; Eosinophils # (A) 0.1 k/uL (0-0.7); Eosinophils % (A) 1 %; HCT 36.1 % (34.0-46.0); HGB 11.6 gm/dL (11.4-16.0); Lymphocytes # (A) 2.7 k/uL (1.0-4.8); Lymphocytes % (A) 36 %; MCH 27.5 pg (25.0-35.0); MCHC 32.1 g/dL (31.0-37.0); MCV 85.8 fL (80.0-100.0); Mean Platelet Volume 7.4; Monocytes # (A) 0.4 k/uL (0-1.0); Monocytes % (A) 5 %; Neutrophils % (A) 54 %; Platelet Count 279 k/uL (150-450); RBC 4.21 m/uL (3.80-5.40); RDW 16.7 % (11.5-15.5); WBC 7.4 k/uL (3.8-10.6)
[2017-08-21] MEDS: PANTOPRAZOLE 40 MG TABLET PO SCH (06:38)
[2017-08-21 06:49] LABS: Anion Gap 7 mmol/L; Blood Urea Nitrogen 13 mg/dL (7-17); Calcium 8.9 mg/dL (8.4-10.2); Carbon Dioxide 29 mmol/L (22-30); Chloride 104 mmol/L (98-107); Glucose 92 mg/dL (74-99); Potassium 3.3 mmol/L (3.5-5.1); Sodium 140 mmol/L (137-145)
[2017-08-21] MEDS: POLYETHYLENE GLYCOL 3350 17 GM POWD.PACK PO SCH (08:21)
[2017-08-21] MEDS: DOCUSATE 100 MG CAP PO SCH ×2 (08:21→20:33)
[2017-08-21] MEDS: FAMOTIDINE 20 MG TAB PO SCH (08:22)
[2017-08-21] MEDS: METOPROLOL TARTRATE 25 MG TAB PO SCH ×2 (08:22→20:33)
[2017-08-21] MEDS: HYDROCHLOROTHIAZIDE 25 MG TAB PO SCH (08:22)
[2017-08-21] MEDS: CILOSTAZOL 100 MG TAB PO SCH ×2 (08:22→20:33)
[2017-08-21] MEDS: NICOTINE 21MG/24HR PATCH TRANSDERM SCH (08:23)
[2017-08-21] MEDS: VANCOMYCIN 1,500 MG in SODIUM CHLORIDE 0.9% 250 ML IVPB SCH ×2 (08:23→20:32)
[2017-08-21] MEDS: ASPIRIN 325 MG TAB PO SCH (08:23)
[2017-08-21 08:37] VITALS: RESP 18
[2017-08-21] MEDS ORDERED: Potassium Replacement Protocol 1 EACH MISC MISCELLANE PRN (08:48)
[2017-08-21] MEDS: POTASSIUM CHLORIDE ER 20 MEQ TAB.ER PO SCH ×2 (09:49→11:06)
[2017-08-21] MEDS: HYDROcodone/APAP 10-325MG 1 EACH TAB PO PRN (09:49)
[2017-08-21 10:12] VITALS: BMI 32.2
[2017-08-21] MEDS ORDERED: DOBUTamine DRIP for NUC MED 500 MG in DEXTROSE/WATER 1 250ML.BAG IV ONE (12:00)
--- NOTE | 2017-08-21 15:30 | P.PN ---
Subjective Progress Note Date: 08/21/17 This is a 52-year-old female with history of coronary artery disease and prior PCI, who does not follow with a sql analyst regularly. She also has history of hypertension, hyperlipidemia, presented to the hospital with symptoms of lightheadedness, right-sided flank pain with associated nausea and vomiting. She also complained of some symptoms of shortness of breath. Her troponins had mild abnormality at 0.05, 0.06, 0.03. EKG did not reveal any acute ischemic changes. White blood cell was elevated on admission. CT of the chest negative for pulmonary embolism. Blood cultures positive for gram- positive cocci in clusters. White blood cell count today 7.4, hemoglobin 11.6, platelet count 279, sodium 140, potassium 3.5, BUN 13, creatinine 0.8. In view of the fact that the patient has abnormal blood cultures today, we will defer on doing any stress testing until the sepsis resolves. As an outpatient we will perform stress test. Objective - Vital Signs Vital signs: Vital Signs Temp 97.3 F L 08/21/17 11:06 Pulse 68 08/21/17 11:06 Resp 18 08/21/17 11:06 BP 134/76 08/21/17 11:06 Pulse Ox 94 L 08/21/17 11:06 Intake & Output 08/20/17 08/21/17 08/21/17 18:59 06:59 18:59 Intake Total 555 820 Balance 555 820 Weight 80 kg 80 kg Intake: Intake, IV Titration 125 250 Amount Vancomycin 1,500 mg In 125 250 Sodium Chloride 0.9% 250 ml @ 125 mls/hr IVPB Q12HR [facility] Rx#:[id number] Oral 430 570 Other: # Voids 1 - Exam PHYSICAL EXAMINATION: GENERAL: 52-year-old female in no apparent distress at the time of my examination. HEENT: Head is atraumatic, normocephalic. Pupils equal, round. Sclera anicteric. Conjunctiva are clear. Mucous membranes of the mouth are moist. Neck is supple. There is no elevated jugular venous pressure.] bruit is heard. HEART EXAMINATION: Heart S1, S2 normal. No murmur or gallop heard. CHEST EXAMINATION: Lungs are clear to auscultation and precussion. No chest wall tenderness is noted on palpation or with deep breathing. ABDOMEN: Soft, nontender. Bowel sounds are heard. No organomegaly noted. EXTREMITIES: 2+ peripheral pulses with no evidence of peripheral edema and no calf tenderness noted. NEUROLOGIC patient is awake, alert and oriented -3. . - Labs CBC & Chem 7: 08/21/17 06:14 08/21/17 14:21 Labs: Abnormal Lab Results - Last 24 Hours (Table) 08/21/17 08/21/17 Range/Units 06:14 06:14 RDW 16.7 H (11.5-15.5) % Potassium 3.3 L (3.5-5.1) mmol/L Microbiology - Last 24 Hours (Table) 08/19/17 18:25 Urine Culture - Final Urine,Voided 08/19/17 15:32 Blood Culture Gram Stain - Preliminary Blood 08/19/17 15:32 Blood Culture - Final Blood 08/19/17 23:34 Gram Stain - Preliminary Abdomen Wound Culture - Preliminary Assessment and Plan Plan: Assessment and plan #1 right lower abdominal and flank discomfort, no acute findings on abdominal and pelvic CT #2 sepsis with evidence of positive blood cultures, gram-positive cocci in clusters. #2 abnormal troponins, possibly secondary to sepsis. #3 colostomy and colostomy reversal #4 known history of coronary artery disease with prior stent # 5 hypertension #6 hyperlipidemia #7 history of rheumatoid arthritis #8nicotine dependence Plan Echocardiogram with Doppler study was performed which reveals a normal left ventricular systolic function. At this point we will continue the patient on the current medications. Once she is stable from a sepsis perspective dobutamine echocardiographic study will be performed. DNP note has been reviewed, I agree with a documented findings and plan of care. Patient was seen and examined.
--- NOTE | 2017-08-21 17:20 | P.PN ---
Subjective Progress Note Date: 08/21/17 Principal diagnosis: Abdominal wound Patient doing much better. Denies abdominal pain. Tolerating regular diet. Good bowel function. No fevers. Objective - Vital Signs Vital signs: Vital Signs Temp 97.8 F 08/21/17 16:00 Pulse 80 08/21/17 16:00 Resp 18 08/21/17 16:00 BP 142/71 08/21/17 16:00 Pulse Ox 93 L 08/21/17 16:00 Intake & Output 08/20/17 08/21/17 08/21/17 18:59 06:59 18:59 Intake Total 555 820 Balance 555 820 Weight 80 kg 80 kg Intake: Intake, IV Titration 125 250 Amount Vancomycin 1,500 mg In 125 250 Sodium Chloride 0.9% 250 ml @ 125 mls/hr IVPB Q12HR [facility] Rx#:[id number] Oral 430 570 Other: # Voids 1 - Exam Abdomen: Soft, nondistended, nontender, 2 small wounds left lower quadrant with minimal drainage - Labs CBC & Chem 7: 08/21/17 06:14 08/21/17 14:21 Labs: Abnormal Lab Results - Last 24 Hours (Table) 08/21/17 08/21/17 Range/Units 06:14 06:14 RDW 16.7 H (11.5-15.5) % Potassium 3.3 L (3.5-5.1) mmol/L Microbiology - Last 24 Hours (Table) 08/19/17 15:32 Blood Culture Gram Stain - Preliminary Blood 08/19/17 18:25 Urine Culture - Final Urine,Voided 08/19/17 15:32 Blood Culture - Final Blood 08/19/17 23:34 Gram Stain - Preliminary Abdomen Wound Culture - Preliminary Assessment and Plan (1) Open abdominal wall wound Narrative/Plan: Patient doing well. Continue diet as tolerated. Stable for discharge from my standpoint. Current Visit: Yes Status: Acute Code(s): S31.109A - UNSP OPN WND ABD WALL, UNSP Q W/O PENET PERIT CAV, INIT SNOMED Code(s): 572755026
[2017-08-21] MEDS: LEVOFLOXACIN 500 MG TAB PO SCH (17:29)
--- NOTE | 2017-08-21 17:40 | PN ---
PROGRESS NOTE DATE OF SERVICE: 08/21/2017 This 52-year-old woman who was admitted chest pain had possible acute ait-MP-dkbidmq- elevation myocardial infarction. The blood culture Gram stain also showed Gram-positive cocci. Patient is on vancomycin. Infectious Disease is following the patient closely. No chest pain. No palpitations. No fever. On exam, alert and oriented x3. Pulse is 80, blood pressure 148/71, respiration 18, temperature 97.8, pulse ox 93% on room air. HEENT: Conjunctivae normal. Oral mucosa moist. NECK: No jugular venous distention. No carotid bruit. No lymph node enlargement. CARDIOVASCULAR SYSTEM: S1, S2 muffled. No S3. No S4. RESPIRATORY SYSTEM: Breath sounds diminished at the bases. No rhonchi. No crackles. ABDOMEN: Soft, non-tender. No mass palpable. LEGS: No edema. No swelling. NERVOUS SYSTEM: No focal deficit. Abdominal wall wound present. LABS: CBC within normal limits. Potassium 3.3 and 3.5. ASSESSMENT: 1. Chest pain, possible acute gwx-YW-eemsqmh-elevation myocardial infarction; troponin 0.050. 2. Abdominal pain and vomiting, possibly acute gastritis. 3. Elevated lactic acid, possibly dehydration. Rule out sepsis. 4. Gram-positive cocci from the blood. 5. Increased white count. 6. Colostomy and colostomy reversal. 7. Minimal anterior abdominal wall wound. 8. History of coronary artery disease and stent. 9. History of deep venous thrombosis. 10.Gastroesophageal reflux disease. 11.Hypertension. 12.History of myocardial infarction. 13.History of rheumatoid arthritis. 14.History of irritable bowel syndrome. 15.Depression. 16.Panic disorder. 17.History of continued ongoing nicotine dependence. 18.Abdominal aortic aneurysm 2 cm, small and not leaking. RECOMMENDATIONS AND DISCUSSION: At this time I recommend to continue current medications, continue symptomatic treatment. Otherwise closely follow with Cardiology and Infectious Disease. Guarded prognosis because of multiple complex medical issues. Further recommendations to follow. MMODL / IJN: [id number] /
[2017-08-21] MEDS ORDERED: VANCOMYCIN TROUGH DUE 1 EACH MISC MISCELLANE ONE (20:00)
[2017-08-21] MEDS: ATORVASTATIN 20 MG TAB PO SCH (20:33)
--- NOTE | 2017-08-21 22:50 | PN ---
PROGRESS NOTE DATE OF SERVICE: 08/21/2017 REASON FOR FOLLOWUP: Bacteremia. INTERVAL HISTORY: The patient has been afebrile. She is breathing comfortably. Denies significant chest pain. Occasional cough. No abdominal pain. No significant drainage from the small wound on the abdominal wall from the colostomy site. No diarrhea. PHYSICAL EXAMINATION: Blood pressure 121/76, pulse of 80, temperature 98.6. She is 96% on room air. General description is a middle-aged female lying in bed in no distress. RESPIRATORY SYSTEM: Unlabored breathing. Clear to auscultation anteriorly. HEART: S1, S2. Regular rate and rhythm. ABDOMEN: Soft. Small wound on the abdominal wall with no slough tissue or any induration. EXTREMITIES: No edema of the feet. LABS: Hemoglobin is 11.6, white count normalized to 7.4 with a BUN of 13, creatinine 0.80. Blood culture with Gram-positive cocci. The abdominal wound culture showing Gram- positive as well. DIAGNOSTIC IMPRESSION AND PLAN: Patient with a positive blood culture with no clear focus, though her white count has normalized. We will keep the patient on vancomycin while waiting for the final identification of this Gram-positive to determine significance and further management. Continue with supportive care. MMODL / IJN: [id number] /
[2017-08-21] MEDS: ALPRAZolam 0.25 MG TAB PO PRN (23:06)
[2017-08-22] MEDS: HYDROcodone/APAP 10-325MG 1 EACH TAB PO PRN (01:09)
[2017-08-22 07:54] LABS: Anisocytosis Slight; Basophils # (A) 0.1 k/uL (0-0.2); Basophils % (A) 1 %; Eosinophils # (A) 0.3 k/uL (0-0.7); Eosinophils % (A) 3 %; HCT 39.5 % (34.0-46.0); HGB 12.4 gm/dL (11.4-16.0); Lymphocytes # (A) 2.9 k/uL (1.0-4.8); Lymphocytes % (A) 35 %; MCHC 31.5 g/dL (31.0-37.0); MCV 85.9 fL (80.0-100.0); Monocytes # (A) 0.6 k/uL (0-1.0); Monocytes % (A) 7 %; Neutrophils # (A) 4.3 k/uL (1.3-7.7); Neutrophils % (A) 52 %; Platelet Count 326 k/uL (150-450); RDW 16.8 % (11.5-15.5); WBC 8.3 k/uL (3.8-10.6)
[2017-08-22 08:30] LABS: Calcium 9.1 mg/dL (8.4-10.2); Potassium 3.7 mmol/L (3.5-5.1)
[2017-08-22] MEDS ORDERED: ASPIRIN 81 MG PO SCH (09:00)
[2017-08-22] MEDS: PANTOPRAZOLE 40 MG TABLET PO SCH (11:14)
[2017-08-22] MEDS: CILOSTAZOL 100 MG TAB PO SCH (11:14)
[2017-08-22] MEDS: DOCUSATE 100 MG CAP PO SCH (11:14)
[2017-08-22] MEDS: HEPARIN SODIUM,PORCINE 5,000 UNIT/ML 1 ML VIAL SQ SCH (11:14)
[2017-08-22] MEDS: HYDROCHLOROTHIAZIDE 25 MG TAB PO SCH (11:15)
[2017-08-22] MEDS: NICOTINE 21MG/24HR PATCH TRANSDERM SCH (11:15)
[2017-08-22] MEDS: METOPROLOL TARTRATE 25 MG TAB PO SCH (11:15)
[2017-08-22] MEDS: VANCOMYCIN 1,500 MG in SODIUM CHLORIDE 0.9% 250 ML IVPB SCH (11:15)
[2017-08-22] MEDS: POLYETHYLENE GLYCOL 3350 17 GM POWD.PACK PO SCH (11:15)
[2017-08-22 11:50] VITALS: BP 134/70; PULSE 70; TEMP 98.4
--- NOTE | 2017-08-22 11:57 | P.PN ---
Subjective Progress Note Date: 08/22/17 This is a 52-year-old female with history of coronary artery disease and prior PCI, who does not follow with a marketing analyst regularly. She also has history of hypertension, hyperlipidemia, presented to the hospital with symptoms of lightheadedness, right-sided flank pain with associated nausea and vomiting. She also complained of some symptoms of shortness of breath. Her troponins had mild abnormality at 0.05, 0.06, 0.03. EKG did not reveal any acute ischemic changes. White blood cell was elevated on admission. CT of the chest negative for pulmonary embolism. Blood cultures positive for gram- positive cocci in clusters. White blood cell count today 7.4, hemoglobin 11.6, platelet count 279, sodium 140, potassium 3.5, BUN 13, creatinine 0.8. In view of the fact that the patient has abnormal blood cultures today, we will defer on doing any stress testing until the sepsis resolves. As an outpatient we will perform stress test. 08/22/2017 Patient seen and examined this morning, blood pressure 134/70, heart rate in the 70s, 95% on room air. No lab data today. Wound culture was also positive for gram-positive cocci. From cardiology's perspective, we will recommend continuing current medications. He will follow her up on an as needed basis only we will schedule her for follow-up appointment in the office, once the patient is free from sepsis and stable outpatient stress test and may be performed. Objective - Vital Signs Vital signs: Vital Signs Temp 98.4 F 08/22/17 11:49 Pulse 70 08/22/17 11:49 Resp 18 08/22/17 11:49 BP 134/70 08/22/17 11:49 Pulse Ox 95 08/22/17 11:49 Intake & Output 08/21/17 08/22/17 08/22/17 18:59 06:59 18:59 Intake Total 820 Balance 820 Weight 80 kg Intake: Intake, IV Titration 250 Amount Vancomycin 1,500 mg In 250 Sodium Chloride 0.9% 250 ml @ 125 mls/hr IVPB Q12HR LUC Rx#:[id number] Oral 570 Other: # Voids 1 - Exam PHYSICAL EXAMINATION: GENERAL: 52-year-old female in no apparent distress at the time of my examination. HEENT: Head is atraumatic, normocephalic. Pupils equal, round. Sclera anicteric. Conjunctiva are clear. Mucous membranes of the mouth are moist. Neck is supple. There is no elevated jugular venous pressure.] bruit is heard. HEART EXAMINATION: Heart S1, S2 normal. No murmur or gallop heard. CHEST EXAMINATION: Lungs are clear to auscultation and precussion. No chest wall tenderness is noted on palpation or with deep breathing. ABDOMEN: Soft, nontender. Bowel sounds are heard. No organomegaly noted. EXTREMITIES: 2+ peripheral pulses with no evidence of peripheral edema and no calf tenderness noted. NEUROLOGIC patient is awake, alert and oriented -3. . - Labs CBC & Chem 7: 08/21/17 06:14 08/21/17 14:21 Labs: Microbiology - Last 24 Hours (Table) 08/19/17 23:34 Gram Stain - Final Abdomen Wound Culture - Final 08/19/17 15:32 Blood Culture Gram Stain - Preliminary Blood Blood Culture - Preliminary Micrococcus species 08/19/17 18:25 Urine Culture - Final Urine,Voided 08/19/17 15:32 Blood Culture - Final Blood Assessment and Plan Plan: Assessment and plan #1 right lower abdominal and flank discomfort, no acute findings on abdominal and pelvic CT #2 sepsis with evidence of positive blood cultures, gram-positive cocci in clusters. #2 abnormal troponins, possibly secondary to sepsis. #3 colostomy and colostomy reversal #4 known history of coronary artery disease with prior stent # 5 hypertension #6 hyperlipidemia #7 history of rheumatoid arthritis #8nicotine dependence Plan Echocardiogram with Doppler study was performed which reveals a normal left ventricular systolic function. At this point we will continue the patient on the current medications. Once she is stable from a sepsis perspective dobutamine echocardiographic study will be performed as an outpatient. We will follow this patient with you now on an as-needed basis only, please don't hesitate to call with any questions. DNP note has been reviewed, I agree with a documented findings and plan of care. Patient was seen and examined.
--- NOTE | 2017-08-22 12:51 | P.PN ---
Subjective Progress Note Date: 08/22/17 Principal diagnosis: Abdominal wound Patient doing well today. Denies abdominal pain. Tolerating regular diet. Objective - Vital Signs Vital signs: Vital Signs Temp 98.4 F 08/22/17 11:49 Pulse 70 08/22/17 11:49 Resp 18 08/22/17 12:00 BP 134/70 08/22/17 11:49 Pulse Ox 95 08/22/17 11:49 Intake & Output 08/21/17 08/22/17 08/22/17 18:59 06:59 18:59 Intake Total 820 Balance 820 Weight 80 kg Intake: Intake, IV Titration 250 Amount Vancomycin 1,500 mg In 250 Sodium Chloride 0.9% 250 ml @ 125 mls/hr IVPB Q12HR LUC Rx#:[id number] Oral 570 Other: # Voids 1 4 - Exam Abdomen: Soft, nondistended, left lower quadrant abdominal wound with minimal drainage, nontender - Labs CBC & Chem 7: 08/22/17 05:53 08/21/17 14:21 Labs: Abnormal Lab Results - Last 24 Hours (Table) 08/22/17 Range/Units 05:53 RDW 16.8 H (11.5-15.5) % Microbiology - Last 24 Hours (Table) 08/19/17 23:34 Gram Stain - Final Abdomen Wound Culture - Final 08/19/17 15:32 Blood Culture Gram Stain - Preliminary Blood Blood Culture - Preliminary Micrococcus species 08/19/17 18:25 Urine Culture - Final Urine,Voided 08/19/17 15:32 Blood Culture - Final Blood Assessment and Plan (1) Open abdominal wall wound Narrative/Plan: Continue local wound care. Continue regular diet. We'll sign off. Current Visit: Yes Status: Acute Code(s): S31.109A - UNSP OPN WND ABD WALL, UNSP Q W/O PENET PERIT CAV, INIT SNOMED Code(s): 293930444
[2017-08-22] MEDS: LEVOFLOXACIN 500 MG TAB PO SCH (14:52)
--- NOTE | 2017-08-22 15:33 | PN ---
PROGRESS NOTE DATE OF SERVICE: 08/22/2017. REASON FOR FOLLOWUP: 1. Abdominal wound. 2. Positive blood culture. INTERVAL HISTORY: The patient has been afebrile. The patient overall is feeling better. Breathing comfortably. Denies having any chest pain, shortness of breath. No cough. No abdominal pain. No nausea, vomiting or diarrhea. EXAMINATION: Blood pressure is 134/70 with a pulse of 73, temperature 98.4. She is 95% on room air. General description is a middle aged female, lying in bed in no distress. RESPIRATORY SYSTEM: Unlabored breathing. Clear to auscultation anteriorly. HEART: S1, S2. Regular rate and rhythm. ABDOMEN: Soft, no tenderness. EXTREMITIES: No edema of the feet. LABS: White count 8.3, white count was 14.8. Blood culture finalized with micrococcus species. Wound culture has been negative. DIAGNOSTIC IMPRESSION AND PLAN: 1. Patient blood culture micrococcus, which is most likely secondary to contamination as the patient has no clinical disease to go along with it. CT angiogram negative. CT of abdomen and pelvis negative as well. The patient with no fever. Vanco to be discontinued. No need for antibiotic on discharge. 2. Abdominal wound with no cellulitis. Local care with Aquacel silver dressing. Continue supportive care. MMODL / IJN: [id number] /
--- NOTE | 2017-08-22 16:26 | DS ---
DISCHARGE SUMMARY DATE OF SERVICE: 08/22/2017. FINAL DIAGNOSES: 1. Chest pain possible acute non ST elevation myocardial infarction with troponin 0.050. 2. Abdominal pain, vomiting, possible acute gastritis. 3. Elevated lactic acid, possible dehydration. No evidence of sepsis. 4. Micrococci from the blood. 5. Increased WBC. 6. Colostomy, colostomy reversal. 7. Minimal anterior abdominal wound. 8. History of coronary artery disease, stent. 9. History of deep venous thrombosis. 10.Gastroesophageal reflux disease. 11.Hypertension. 12.History of myocardial infarction. 13.History rheumatoid arthritis. 14.History of irritable bowel syndrome. 15.History of depression. 16.History of panic disorder. 17.History of continued ongoing nicotine dependence. 18.Abdominal aortic aneurysm 2 cm small and not leaking. 19.Possible positive sepsis. DISCHARGE DISPOSITION: The patient will be discharged in stable condition with guarded prognosis. HISTORY OF PRESENT ILLNESS: This 52-year-old woman with past medical history of multiple medical problems was admitted with chest pain and multiple other medical problems. The patient was treated in conjunction with Cardiology and Infectious Disease and patient given antibiotics also. Otherwise, the patient treated symptomatically. The patient will be discharged in stable condition with guarded prognosis. On exam, vitals stable. CARDIOVASCULAR: S1, S2. ABDOMEN: Soft. NERVOUS SYSTEM: No focal deficit. DISCHARGE ADVICE: 1. Diet is cardiac. 2. Activity limited until followup. 3. Follow up with Dr. Jackson in 2 to 3 days. 4. Follow up with Dr. Alex, Dr. Malhotra and Dr. Weber as recommended. MEDICATIONS: 1. Ecotrin 81 mg daily. 2. Pletal 50 mg b.i.d. 3. Colace 100 mg p.o. b.i.d. 4. HydroDIURIL 25 mg. 5. [place] 10 mg q.6h p.r.n. 6. Mobic 7.5 mg p.o. daily. 7. MiraLAX 17 g daily. 8. Crestor 10 mg q.h.s. 9. Tylenol 500 every 6 hours p.r.n. 10.Pepcid 20 mg p.o. b.i.d. 11.Levaquin 500 mg p.o. daily per ID. 12.Lopressor 25 mg p.o. b.i.d. 13.Habitrol 21 daily. Once again the patient is being discharged in stable condition with guarded prognosis. MMODL / IJN: [id number] /
== END 2017-08-22 16:33 | disposition home or self-care (01) | DRG 282 ==
LOC: EC 15:12 → 6SEL 18:41
PROVIDERS: ADMIT Internal Medicine; ATTEND Internal Medicine
DX: I21.4 Non-ST elevation (NSTEMI) myocardial infarction (principal); I25.10 Atherosclerotic heart disease of native coronary artery without angina pectoris; M06.9 Rheumatoid arthritis, unspecified; E86.0 Dehydration; S31.104A Unspecified open wound of abdominal wall, left lower quadrant without penetration into peritoneal cavity, initial encounter; K58.9 Irritable bowel syndrome, unspecified; K21.9 Gastro-esophageal reflux disease without esophagitis; I25.2 Old myocardial infarction; F41.0 Panic disorder [episodic paroxysmal anxiety]; F32.9 Major depressive disorder, single episode, unspecified; I71.4 Abdominal aortic aneurysm, without rupture; D72.829 Elevated white blood cell count, unspecified; I10 Essential (primary) hypertension; K29.70 Gastritis, unspecified, without bleeding; F17.210 Nicotine dependence, cigarettes, uncomplicated; F41.9 Anxiety disorder, unspecified; G56.03 Carpal tunnel syndrome, bilateral upper limbs; E78.5 Hyperlipidemia, unspecified; Z80.9 Family history of malignant neoplasm, unspecified; Z95.5 Presence of coronary angioplasty implant and graft; Z86.718 Personal history of other venous thrombosis and embolism; Z79.899 Other long term (current) drug therapy; Z90.49 Acquired absence of other specified parts of digestive tract; Z90.710 Acquired absence of both cervix and uterus; Z85.42 Personal history of malignant neoplasm of other parts of uterus; Z43.3 Encounter for attention to colostomy; Z88.5 Allergy status to narcotic agent; Z88.0 Allergy status to penicillin; Z87.440 Personal history of urinary (tract) infections; Z86.69 Personal history of other diseases of the nervous system and sense organs; Z87.19 Personal history of other diseases of the digestive system; Z86.19 Personal history of other infectious and parasitic diseases; Z79.1 Long term (current) use of non-steroidal anti-inflammatories (NSAID); Z79.82 Long term (current) use of aspirin; Z79.891 Long term (current) use of opiate analgesic; Z87.09 Personal history of other diseases of the respiratory system; Z86.39 Personal history of other endocrine, nutritional and metabolic disease
CPT/HCPCS: 36415; 71046; 71275; 74177; 80048; 80061; 80076; 80202; 81003; 82550; 82553; 83605; 83690; 83735; 83880; 84132; 84484; 85025; 85027; 85379; 87040; 87070; 87086; 87205; 93005; 93306; 94640

== ENCOUNTER 2019-06-12 10:40 | Inpatient (IN) | payer MEDICARE, OTHER ==
[2019-06-12] MEDS ORDERED: ONDANSETRON 4 MG/2 ML VIAL IVP STA (11:11)
[2019-06-12] MEDS ORDERED: SODIUM CHLORIDE 0.9% 500 ML 500 ML IV ONE (11:11)
[2019-06-12] MEDS ORDERED: MORPHINE SULFATE 4 MG/ML SYRINGE IVP STA (11:11)
--- NOTE | 2019-06-12 11:18 | ED ---
General Adult HPI - General Source: patient, RN notes reviewed Mode of arrival: wheelchair Limitations: no limitations <Carter Delgado - Last Filed: 06/12/19 13:40> <Zafar Tovar - Last Filed: 06/12/19 13:44> - General Chief complaint: Neuro Symptoms/Deficit Stated complaint: numbness in both legs Time Seen by Provider: 06/12/19 10:50 - History of Present Illness Initial comments: This a 53-year-old female presents emergency Department with chief complaint of bilateral leg pain, black tarry stools or shortness of breath. Patient states that she has chronic ongoing leg problems for the Last 5 years but states that the last 3 days she is having increasing symptoms. Patient states she always uses a cane to walk but states that when she stands up she has increased pain and numbness in bilateral lower extremities. Patient states that she has not a diabetic. Patient states that she has no increased back pain denies any trauma. Patient denies any bowel incontinence or bladder retention. Denies any saddle anesthesias. She states she has pain from her lower abdomen into both legs. She has no complaints of dysuria or hematuria. Patient also states she's had some abdominal discomfort with black tarry stools. She states that she's had this in the past and is had multiple abdominal surgeries and sees Dr. Alex. Patient does admit she started seeing a new primary care physician who started her on Plavix. Patient does complain of shortness of breath with no chest pain. Patient states the shortness breath is chronic related to her heavy smoking. She does admit that she has COPD. She continues to smoke daily. She does admit that she's been instructed to stop several times. She does not currently see a vascular surgeon. (Carter Delgado) - Related Data Home Medications Medication Instructions Recorded Confirmed Aspirin EC [Ecotrin Low Dose] 81 mg PO DAILY 08/19/17 08/19/17 Cilostazol [Pletal] 50 mg PO BID 08/19/17 08/19/17 Docusate [Colace] 100 mg PO BID 08/19/17 08/19/17 HYDROcodone/APAP 10-325MG [[place] 1 tab PO Q6HR PRN 08/19/17 08/19/17 10-325] Hydrochlorothiazide [Hydrodiuril] 25 mg PO DAILY 08/19/17 08/19/17 Meloxicam [Mobic] 7.5 mg PO DAILY 08/19/17 08/19/17 Polyethylene Glycol 3350 [Miralax] 17 gm PO DAILY 08/19/17 08/19/17 Rosuvastatin [Crestor] 10 mg PO HS 08/19/17 08/19/17 Previous Rx's Medication Instructions Recorded Famotidine [Pepcid] 20 mg PO BID #60 tab 10/15/14 Metoprolol Tartrate [Lopressor] 25 mg PO BID #60 tab 10/22/14 Acetaminophen Tab [Tylenol] 500 mg PO Q6HR PRN tab 08/22/17 Levofloxacin [Levaquin] 500 mg PO DAILY@1800 #7 tab 08/22/17 Nicotine 21Mg/24Hr Patch [Habitrol] 1 patch TRANSDERM DAILY #30 patch 08/22/17 Allergies Allergy/AdvReac Type Severity Reaction Status Date / Time amoxicillin Allergy Unknown Verified 08/19/17 15:53 Childhood Penicillins Allergy Unknown Verified 08/19/17 15:53 Childhood Review of Systems ROS Other: All systems not noted in ROS Statement are negative. <Carter Delgado - Last Filed: 06/12/19 13:40> ROS Other: All systems not noted in ROS Statement are negative. <Zafar Tovar - Last Filed: 06/12/19 13:44> ROS Statement: Those systems with pertinent positive or pertinent negative responses have been documented in the HPI. Past Medical History Past Medical History: Chest Pain / Angina, COPD, Deep Vein Thrombosis (DVT), GERD/Reflux, Hyperlipidemia, Hypertension, Myocardial Infarction ([place]), Rheumatoid Arthritis ([place]) Additional Past Medical History / Comment(s): Uterine cancer with surgery, diverticulitis with surgeries/colostomy now reversed with poor healing-being followed by Dr. Alex, UTI/ blood infection after one of her bowel surgeries with extended hospitalization, 2013 possible seizure, vertigo, bilateral carpal tunnel syndrome, bilateral lower leg DVTs, constipation. Last Myocardial Infarction Date:: 2009 History of Any Multi-Drug Resistant Organisms: None Reported Past Surgical History: Bowel Resection, Heart Catheterization With Stent, Hysterectomy, Tonsillectomy Additional Past Surgical History / Comment(s): 4 bowel surgeries, COLOSTOMY X2, reversal of colostomy, colonoscopies. Past Anesthesia/Blood Transfusion Reactions: No Reported Reaction Date of Last Stent Placement:: 2009 Past Psychological History: Anxiety, Depression, Panic Disorder Smoking Status: Current every day smoker - Past Family History Mother Family Medical History: Cancer Father Family Medical History: Cancer <Carter Delgado - Last Filed: 06/12/19 13:40> General Exam Limitations: no limitations General appearance: alert, in no apparent distress, anxious, other (Patient is tearful, stating that she is scared.) Head exam: Present: atraumatic, normocephalic, normal inspection Eye exam: Present: normal appearance, PERRL, EOMI. Absent: scleral icterus, conjunctival injection, periorbital swelling ENT exam: Present: normal exam, mucous membranes moist Respiratory exam: Present: wheezes, decreased breath sounds. Absent: normal lung sounds bilaterally, respiratory distress, rales, rhonchi, stridor Cardiovascular Exam: Present: normal rhythm, tachycardia (Heart rate 122 on exam), normal heart sounds. Absent: systolic murmur, diastolic murmur, rubs, gallop, clicks GI/Abdominal exam: Present: soft, normal bowel sounds. Absent: distended, tenderness (Patient complains of mild diffuse tenderness with palpation there is no localized tenderness multiple old scars noted), guarding, rebound, rigid Extremities exam: Present: other (Bilateral lower extremity equal color, equal warmth they are not cool to the touch no no palpable pulses, Doppler was used faint popilteal patient has equal strength 5/5 both lower extremities she does have full range of motion patient was ambulating from the wheelchair to the bed with minimal difficulty) Neurological exam: Present: alert, oriented X3, CN II-XII intact, reflexes normal. Absent: motor sensory deficit Skin exam: Present: warm, dry, intact, normal color. Absent: rash <Carter Delgado - Last Filed: 06/12/19 13:40> Course <Carter Delgado - Last Filed: 06/12/19 13:40> <Zafar Tovar - Last Filed: 06/12/19 13:44> Vital Signs 06/12/19 06/12/19 10:41 12:44 Temperature 97.9 F Pulse Rate 122 H 98 Respiratory 18 18 Rate Blood Pressure 120/79 142/69 O2 Sat by Pulse 100 98 Oximetry - Reevaluation(s) Reevaluation #1: 06/12/19 11:18 Labs, CTA were ordered of the lower extremities throughout any arterial occlusion which may include chronic nature (Carter Delgado) Reevaluation #2: 06/12/19 13:43 PA supervision: I presented evaluate this case patient will be admitted with evaluation by GI as well as surgery. (Zafar Tovar) Medical Decision Making - Lab Data Result diagrams: 06/12/19 11:46 06/12/19 11:46 <Carter Delgado - Last Filed: 06/12/19 13:40> - Lab Data Result diagrams: 06/12/19 11:46 06/12/19 11:46 <Zafar Tovar - Last Filed: 06/12/19 13:44> - Medical Decision Making 53-year-old female presented for claudication patient is alert show me. Patient states the pain is still partially tottery. I didn't order a CTA of her lower extremities which shows worsening occlusions narrowing of the aorta to 9 mm. She also has multiple region demonstrated areas of occlusion which is chronic and difficult to evaluate the remaining lower extremities. Patient also found have a hemoglobin 7.5 she complains of right eye stools though she is Hemoccult negative. I did discuss case with her primary care physician Dr. Romo who accepts patient for admission, patient will have consult to vascular surgery and he recommends patient be evaluated by Dr. Beauchamp for possible EGD colonoscopy secondary to anemia. Patient would not be placed on heparin at this time as there is concern for GI bleed. Patient will be continued on aspirin and Plavix and Lipitor. (Carter Delgado) - Lab Data Lab Results 06/12/19 06/12/19 06/12/19 Range/Units 11:08 11:46 11:46 WBC 10.0 (3.8-10.6) k/uL RBC 2.66 L (3.80-5.40) m/uL Hgb 7.5 L (11.4-16.0) gm/dL Hct 23.6 L (34.0-46.0) % MCV 88.5 (80.0-100.0) fL MCH 28.0 (25.0-35.0) pg MCHC 31.6 (31.0-37.0) g/dL RDW 15.2 (11.5-15.5) % Plt Count 434 (150-450) k/uL Neutrophils % 63 % Lymphocytes % 26 % Monocytes % 5 % Eosinophils % 3 % Basophils % 0 % Neutrophils # 6.3 (1.3-7.7) k/uL Lymphocytes # 2.6 (1.0-4.8) k/uL Monocytes # 0.5 (0-1.0) k/uL Eosinophils # 0.3 (0-0.7) k/uL Basophils # 0.0 (0-0.2) k/uL Hypochromasia Moderate Poikilocytosis Slight PT 10.0 (9.0-12.0) sec INR 1.0 (<1.2) APTT 21.1 L (22.0-30.0) sec Sodium (137-145) mmol/L Potassium (3.5-5.1) mmol/L Chloride (98-107) mmol/L Carbon Dioxide (22-30) mmol/L Anion Gap mmol/L BUN (7-17) mg/dL Creatinine (0.52-1.04) mg/dL Est GFR (CKD-EPI)AfAm (>60 ml/min/1.73 sqM) Est GFR (CKD-EPI)NonAf (>60 ml/min/1.73 sqM) Glucose (74-99) mg/dL Calcium (8.4-10.2) mg/dL Total Bilirubin (0.2-1.3) mg/dL AST (14-36) U/L ALT (4-34) U/L Alkaline Phosphatase (38-126) U/L Troponin I (0.000-0.034) ng/mL Total Protein (6.3-8.2) g/dL Albumin (3.5-5.0) g/dL Lipase (23-300) U/L Stool Occult Blood Negative (Negative) 06/12/19 06/12/19 Range/Units 11:46 11:46 WBC (3.8-10.6) k/uL RBC (3.80-5.40) m/uL Hgb (11.4-16.0) gm/dL Hct (34.0-46.0) % MCV (80.0-100.0) fL MCH (25.0-35.0) pg MCHC (31.0-37.0) g/dL RDW (11.5-15.5) % Plt Count (150-450) k/uL Neutrophils % % Lymphocytes % % Monocytes % % Eosinophils % % Basophils % % Neutrophils # (1.3-7.7) k/uL Lymphocytes # (1.0-4.8) k/uL Monocytes # (0-1.0) k/uL Eosinophils # (0-0.7) k/uL Basophils # (0-0.2) k/uL Hypochromasia Poikilocytosis PT (9.0-12.0) sec INR (<1.2) APTT (22.0-30.0) sec Sodium 138 (137-145) mmol/L Potassium 4.0 (3.5-5.1) mmol/L Chloride 106 (98-107) mmol/L Carbon Dioxide 24 (22-30) mmol/L Anion Gap 8 mmol/L BUN 13 (7-17) mg/dL Creatinine 0.74 (0.52-1.04) mg/dL Est GFR (CKD-EPI)AfAm >90 (>60 ml/min/1.73 sqM) Est GFR (CKD-EPI)NonAf >90 (>60 ml/min/1.73 sqM) Glucose 99 (74-99) mg/dL Calcium 9.0 (8.4-10.2) mg/dL Total Bilirubin 0.1 L (0.2-1.3) mg/dL AST 20 (14-36) U/L ALT 17 (4-34) U/L Alkaline Phosphatase 83 (38-126) U/L Troponin I <0.012 (0.000-0.034) ng/mL Total Protein 6.7 (6.3-8.2) g/dL Albumin 3.8 (3.5-5.0) g/dL Lipase 41 (23-300) U/L Stool Occult Blood (Negative) Disposition <Carter Delgado - Last Filed: 06/12/19 13:40> <Zafar Tovar - Last Filed: 06/12/19 13:44> Clinical Impression: Peripheral arterial disease, Occlusive disease of artery of lower extremity, Anemia Disposition: ADMITTED IP TO THIS HOSP Condition: Serious Referrals: Giancarlo Nuno MD [Primary Care Provider] - 1-2 days
[2019-06-12 11:59] LABS: Basophils % (A) 0 %; Eosinophils # (A) 0.3 k/uL (0-0.7); Eosinophils % (A) 3 %; HCT 23.6 % (34.0-46.0); HGB 7.5 gm/dL (11.4-16.0); Hypochromasia Moderate; Lymphocytes # (A) 2.6 k/uL (1.0-4.8); Lymphocytes % (A) 26 %; MCHC 31.6 g/dL (31.0-37.0); MCV 88.5 fL (80.0-100.0); Monocytes # (A) 0.5 k/uL (0-1.0); Monocytes % (A) 5 %; Neutrophils # (A) 6.3 k/uL (1.3-7.7); Neutrophils % (A) 63 %; Platelet Count 434 k/uL (150-450); Poikilocytosis Slight; RBC 2.66 m/uL (3.80-5.40); RDW 15.2 % (11.5-15.5)
[2019-06-12 12:09] LABS: ALT 17 U/L (4-34); AST 20 U/L (14-36); African American GFR (CKD) >90 (>60 ml/min/1.73 sqM); Albumin 3.8 g/dL (3.5-5.0); Alkaline Phosphatase 83 U/L (38-126); Anion Gap 8 mmol/L; Blood Urea Nitrogen 13 mg/dL (7-17); Carbon Dioxide 24 mmol/L (22-30); Chloride 106 mmol/L (98-107); Glucose 99 mg/dL (74-99); Non-African American GFR(CKD) >90 (>60 ml/min/1.73 sqM); Sodium 138 mmol/L (137-145); Total Bilirubin 0.1 mg/dL (0.2-1.3); Total Protein 6.7 g/dL (6.3-8.2)
[2019-06-12] MEDS ORDERED: PANTOPRAZOLE 40 MG/10 ML VIAL IVP STA (12:09)
[2019-06-12 12:30] LABS: Partial Thromboplastin Time 21.1 sec (22.0-30.0)
--- NOTE | 2019-06-12 12:49 | XR ---
EXAMINATION TYPE: XR chest 2V DATE OF EXAM: 06/12/2019 COMPARISON: 08/19/2017 HISTORY: 53-year-old female lower limb swelling, shortness of breath TECHNIQUE: AP and lateral views FINDINGS: Hardware limits of normal in size. Mild interstitial prominence in the chronic appearance. Some stran dy atelectasis left midlung. No richard consolidation or pleural effusion. IMPRESSION: Chronic appearing changes. Correlate to exclude mild pulmonary vascular congestion. No infiltrate or pleural effusion.
--- NOTE | 2019-06-12 13:22 | CT ---
EXAMINATION TYPE: CT angio lower extremity BILAT DATE OF EXAM: 06/12/2019 COMPARISON: Correlation CT abdomen and pelvis 08/19/2017 HISTORY: 53-year-old female Lower extremity pain, vascular disease TECHNIQUE: Contiguous axial scanning of the pelvis with bilateral lower extremity runoff performed wi th IV Contrast, patient injected with 100 ml mL of Isovue 370. Rescan was performed through the legs. Coronal/sagittal reconstructions performed. 3-D reconstructions generated on a dedicated independent workstation. CT DLP: 1357.9 mGycm Automated exposure control for dose reduction was used. FINDINGS: Visualized lower abdomen and pelvis shows urine distended bladder. Uterus surgically absent. Staple l ine at the rectosigmoid junction from prior resection and re-anastomosis. Normal appendix. It seems t o be some progressive healing with scar formation in the left paramedian infraumbilical region. Relatively severe atherosclerotic changes are present within the distal abdominal aorta and common il iac arteries. The distal abdominal aorta remains ectatic and 2.6 cm. Progressive circumferential plaque/thrombus in the distal abdominal aorta narrowing the patent lumen to 9 mm versus 1.1 cm, previously. RIGHT: Redemonstrated occlusion of the right common iliac artery and reconstitution of the right external il iac artery which is diminutive. Segmental moderate atherosclerotic narrowing at CLAIM TECHNICIAN. Profunda femoral artery appears patent. SFA is patent. Popliteal artery is patent. Aberrant high takeoff of the anterior tibial artery from the popliteal artery. The proximal runoff vessels are patent but become extremely diminutive and are difficult to visualize below the mid leg level. LEFT: This seems to be a subtotal occlusion along the mid left common iliac artery (narrowing progressed fr om 08/19/2017) with faint contrast seen within the distal left common iliac artery and opacification o f the left internal iliac artery though there is moderate to severe narrowing at the internal iliac a rtery origin. There is occlusion at the proximal left external iliac artery with reconstitution of the distal left external iliac artery from collateral flow. Moderate atherosclerotic narrowing CLAIM TECHNICIAN. At least moderate atherosclerotic narrowing at the origin of the profunda femoral artery. SFA is patent. Popliteal artery is patent. Conventional branching of the trifurcation vessels which remain patent. However, the trifurcation ves sels become extremely diminutive and are difficult to visualize below the mid leg level. BONES: Soft tissue swelling of the distal legs and ankles, right greater than left. No osseous destructive p rocess seen. IMPRESSION: 1. SIMILAR ECTATIC DISTAL ABDOMINAL AORTA AT 2.6 CM BUT WITH PROGRESSIVE CIRCUMFERENTIAL PLAQUE AND T HROMBUS NARROWING THE PATENT LUMEN TO 9 MM VERSUS 1.1 CM , PREVIOUSLY. RIGHT: 2. Redemonstrated right common iliac artery occlusion and reconstitution of the right external iliac artery. 3. Moderate segmental atherosclerotic narrowing throughout the CLAIM TECHNICIAN. 4. Aberrant high takeoff of the anterior tibial artery from the popliteal artery. 5. The proximal runoff vessels are patent but becomes extremely diminutive and are difficult to evalu ate below the mid leg level. LEFT: 6. Progressive narrowing now with subtotal occlusion along the mid common iliac artery. Faint contras t is seen in the distal left common iliac artery filling the internal iliac artery which has moderate to severe narrowing at its origin. 7. Redemonstrated occlusion of the proximal external iliac artery with reconstitution of the distal v essel from collateral flow. 8. Moderate atherosclerotic narrowing CLAIM TECHNICIAN and at least moderate atherosclerotic narrowing at the orig in of the profunda femoral artery. 9. Conventional branching of the trifurcation vessels which are patent proximally. However, similar t o the contralateral side, the vessels become extremely diminutive at the mid leg level and become dif ficult to evaluate below this level.
[2019-06-12] MEDS ORDERED: HYDROcodone/APAP 5-325MG 1 EACH TAB PO PRN (13:43)
[2019-06-12] MEDS ORDERED: ONDANSETRON 4 MG/2 ML VIAL IVP PRN (13:43)
[2019-06-12] MEDS ORDERED: NALOXONE 0.4 MG/ML 1 ML VIAL IV PRN (13:43)
[2019-06-12] MEDS: SODIUM CHLORIDE 0.9% 1,000 ML IV SCH (17:30)
--- NOTE | 2019-06-12 18:00 | P.GSCN ---
History of Present Illness Consult date: 06/12/19 Reason for Consult: Atherosclerotic vascular disease Requesting physician: Giancarlo Nuno History of present illness: Impression: #1: Acute blood loss anemia. Suspect GI source. (Hemoglobin 7.5) #2: Severe aortoiliac occlusive disease. #3: Bilateral carotid bruits. #4: Coronary artery disease status post myocardial infarction with cardiac catheterization and coronary artery balloon angioplasty and stenting performed approximately 8 years prior. #5: Approximately 14-exed-ecas tobacco use history. #6: Sigmoid diverticular disease status post colon resection. #7: History of hypertension. #8: History of rheumatoid arthritis. #9: History of dyslipidemia. #10: Peripheral neuropathy, suspected ischemic in origin. Recommendation: #1: Type and cross match 2 units of packed red blood cells and have available. #2: Every 6 hours hemoglobin and hematocrit determination. #3: Gen. surgical consultation regarding GI bleed. #4: Initiation of IV fluids. #5: Vascular disease can be further evaluated as an outpatient. #6: Carotid duplex to evaluate for carotid stenosis as the patient demonstrates bilateral carotid bruits. #7: For the moment stopped both aspirin and Plavix. Patient is a 53-year-old female who was evaluated today and ask her surgical consultation in reference to a chief complaint of weakness of her bilateral lower extremities. She indicates for the past 3 days her legs have become increasingly weak and she is been unable to stand and support herself. Additionally the patient has been complaining of both melanotic and some reddish/blood tinge to her stool. She denies any significant abdominal pain. She denies any previous similar melanotic or passing red blood per rectum. She does have history of severe diverticular disease requiring a Kaela's procedure and eventually this was taken down with reestablishment of GI continuity. She has a very significant history of tobacco use and at one time was smoking 4 packs of cigarettes daily. She did that for greater than 20 years and now is continuing to use tobacco products smoking approximately 10 cigarettes daily. The patient denies any neurologic symptoms consistent with carotid arterial occlusive disease the patient indicates that she has been experiencing paresthesias of her feet over the past 3 years. No significant c hange has been noted in the symptoms in the last 3 days. Physical examination: Bilateral carotid bruits are noted. Heart was regular. Lungs are clear bilaterally. Abdomen is soft with no mobile masses nor any significant abdominal tenderness. Examination lower extremities demonstrates femoral, popliteal, dorsalis pedis and posterior tibial ulcers to be absent. Toes are freely movable and nonte nder. No open wound is noted either lower extremity/foot. Sensory remains intact in both feet and are equal bilaterally. Arterial Doppler study was performed. This demonstrated an ankle-brachial index of 0.34 on the right and 0.26 on the left. Pressures and waveforms are consistent with aortoiliac occlusive disease. CT angiogram of the abdominal, pelvic and lower extremity vessels demonstrated severe aortoiliac occlusive disease. Thank you very much for allowing me to participate in the care of your patient. Once all medical issues are cleared further workup for her vascular disease can be performed. This can be performed as an outpatient. Past Medical History Past Medical History: Chest Pain / Angina, COPD, Deep Vein Thrombosis (DVT), GERD/Reflux, Hyperlipidemia, Hypertension, Myocardial Infarction ([place]), Rheumatoid Arthritis ([place]) Additional Past Medical History / Comment(s): Uterine cancer with surgery, diverticulitis with surgeries/colostomy now reversed with poor healing-being followed by Dr. Alex, UTI/ blood infection after one of her bowel surgeries with extended hospitalization, 2013 possible seizure, vertigo, bilateral carpal tunnel syndrome, bilateral lower leg DVTs, constipation. Last Myocardial Infarction Date:: 2009 History of Any Multi-Drug Resistant Organisms: None Reported Past Surgical History: Bowel Resection, Heart Catheterization With Stent, Hysterectomy, Tonsillectomy Additional Past Surgical History / Comment(s): 4 bowel surgeries, COLOSTOMY X2, reversal of colostomy, colonoscopies. Past Anesthesia/Blood Transfusion Reactions: No Reported Reaction Date of Last Stent Placement:: 2009 Past Psychological History: Anxiety, Depression, Panic Disorder Smoking Status: Current every day smoker - Past Family History Mother Family Medical History: Cancer Father Family Medical History: Cancer Medications and Allergies Home Medications Medication Instructions Recorded Confirmed Type Aspirin EC [Ecotrin Low Dose] 81 mg PO DAILY 08/19/17 06/12/19 History Albuterol Inhaler [Ventolin Hfa 2 puff INHALATION RT-QID PRN 06/12/19 06/12/19 History Inhaler] Atorvastatin [Lipitor] 80 mg PO HS 06/12/19 06/12/19 History Cilostazol [Pletal] 100 mg PO BID 06/12/19 06/12/19 History Clopidogrel [Plavix] 75 mg PO DAILY 06/12/19 06/12/19 History Diclofenac Sodium Gel [Voltaren 2 gm TOPICAL QID 06/12/19 06/12/19 History Gel] Fluticasone/Vilanterol [Breo 1 puff INHALATION RT-DAILY 06/12/19 06/12/19 History Ellipta 100-25 Mcg Inhaler] Lisinopril [Prinivil] 5 mg PO DAILY 06/12/19 06/12/19 History Ubidecarenone [Co Q-10] 100 mg PO DAILY 06/12/19 06/12/19 History Allergies Allergy/AdvReac Type Severity Reaction Status Date / Time amoxicillin Allergy Unknown Verified 06/12/19 14:11 Childhood Penicillins Allergy Unknown Verified 06/12/19 14:11 Childhood Surgical - Exam Osteopathic Statement: *. No significant issues noted on an osteopathic structural exam other than those noted in the History and Physical/Consult. Vital Signs Temp Pulse Resp BP Pulse Ox 97.9 F 122 H 18 120/79 100 06/12/19 10:41 06/12/19 10:41 06/12/19 10:41 06/12/19 10:41 06/12/19 10:41 Results - Labs 06/12/19 11:46 06/12/19 11:46 Abnormal Lab Results - Last 24 Hours (Table) 06/12/19 06/12/19 06/12/19 Range/Units 11:46 11:46 11:46 RBC 2.66 L (3.80-5.40) m/uL Hgb 7.5 L (11.4-16.0) gm/dL Hct 23.6 L (34.0-46.0) % APTT 21.1 L (22.0-30.0) sec Total Bilirubin 0.1 L (0.2-1.3) mg/dL Diabetes panel 06/12/19 Range/Units 11:46 Sodium 138 (137-145) mmol/L Potassium 4.0 (3.5-5.1) mmol/L Chloride 106 (98-107) mmol/L Carbon Dioxide 24 (22-30) mmol/L BUN 13 (7-17) mg/dL Creatinine 0.74 (0.52-1.04) mg/dL Glucose 99 (74-99) mg/dL Calcium 9.0 (8.4-10.2) mg/dL AST 20 (14-36) U/L ALT 17 (4-34) U/L Alkaline Phosphatase 83 (38-126) U/L Total Protein 6.7 (6.3-8.2) g/dL Albumin 3.8 (3.5-5.0) g/dL Calcium panel 06/12/19 Range/Units 11:46 Calcium 9.0 (8.4-10.2) mg/dL Albumin 3.8 (3.5-5.0) g/dL Pituitary panel 06/12/19 Range/Units 11:46 Sodium 138 (137-145) mmol/L Potassium 4.0 (3.5-5.1) mmol/L Chloride 106 (98-107) mmol/L Carbon Dioxide 24 (22-30) mmol/L BUN 13 (7-17) mg/dL Creatinine 0.74 (0.52-1.04) mg/dL Glucose 99 (74-99) mg/dL Calcium 9.0 (8.4-10.2) mg/dL Adrenal panel 06/12/19 Range/Units 11:46 Sodium 138 (137-145) mmol/L Potassium 4.0 (3.5-5.1) mmol/L Chloride 106 (98-107) mmol/L Carbon Dioxide 24 (22-30) mmol/L BUN 13 (7-17) mg/dL Creatinine 0.74 (0.52-1.04) mg/dL Glucose 99 (74-99) mg/dL Calcium 9.0 (8.4-10.2) mg/dL Total Bilirubin 0.1 L (0.2-1.3) mg/dL AST 20 (14-36) U/L ALT 17 (4-34) U/L Alkaline Phosphatase 83 (38-126) U/L Total Protein 6.7 (6.3-8.2) g/dL Albumin 3.8 (3.5-5.0) g/dL
--- NOTE | 2019-06-12 19:22 | P.GSCN ---
History of Present Illness Consult date: 06/12/19 Reason for Consult: Upper GI bleed History of present illness: Patient presents to the hospital complaining of bilateral leg pain. Patient has history of severe peripheral vascular disease. She was also complaining of black colored stools over the last 3 today. With some shortness of breath. Patient's hemoglobin found to be 7.5. No history of upper GI bleed or ulcers in the past. Last EGD proximally 4 years ago. Patient had a small hiatal hernia with gastritis and duodenitis. Patient known to my service from previous Munson's procedure and subsequent colostomy reversal. Previous colonoscopy showed diverticulosis. Patient is on Plavix. Denies abdominal pain. Patient with history of COPD and still actively smoking. I was contacted by vascular surgery by phone this evening notify me of the black colored stools and the need for endoscopy. Patient had 1 episode of bright red blood per rectum 1-2 weeks ago. She thought this was related to a hemorrhoid which was causing some perianal discomfort. Review of Systems The patient denies any acute changes in vision or hearing, no dysphagia or od ynophagia, no chest pain, no dysuria or hematuria, no headache, no runny nose, no rectal bleeding, no unexplained weight loss Past Medical History Past Medical History: Chest Pain / Angina, COPD, Deep Vein Thrombosis (DVT), GERD/Reflux, Hyperlipidemia, Hypertension, Myocardial Infarction ([place]), Rheumatoid Arthritis (RA) Additional Past Medical History / Comment(s): Uterine cancer with surgery, diverticulitis with surgeries/colostomy now reversed with poor healing-being followed by Dr. Alex, UTI/ blood infection after one of her bowel surgeries with extended hospitalization, 2013 possible seizure, vertigo, bilateral carpal tunnel syndrome, bilateral lower leg DVTs, constipation. Last Myocardial Infarction Date:: 2009 History of Any Multi-Drug Resistant Organisms: None Reported Past Surgical History: Bowel Resection, Heart Catheterization With Stent, Hysterectomy, Tonsillectomy Additional Past Surgical History / Comment(s): 4 bowel surgeries, COLOSTOMY X2, reversal of colostomy, colonoscopies. Past Anesthesia/Blood Transfusion Reactions: No Reported Reaction Date of Last Stent Placement:: 2009 Past Psychological History: Anxiety, Depression, Panic Disorder Additional Psychological History / Comment(s): Pt has a room mate. She uses a walker to ambulate. She no longer drives, she uses the bus to get to appts. She is disabled. Smoking Status: Current every day smoker Past Alcohol Use History: Occasional Additional Past Alcohol Use History / Comment(s): STARTED SMOKING AT AGE 14 - SMOKED UP TO 3PPD AND NOW SMOKING 10 CIG PER DAY Past Drug Use History: None Reported - Past Family History Mother Family Medical History: Cancer Father Family Medical History: Cancer Medications and Allergies Home Medications Medication Instructions Recorded Confirmed Type Aspirin EC [Ecotrin Low Dose] 81 mg PO DAILY 08/19/17 06/12/19 History Albuterol Inhaler [Ventolin Hfa 2 puff INHALATION RT-QID PRN 06/12/19 06/12/19 History Inhaler] Atorvastatin [Lipitor] 80 mg PO HS 06/12/19 06/12/19 History Cilostazol [Pletal] 100 mg PO BID 06/12/19 06/12/19 History Clopidogrel [Plavix] 75 mg PO DAILY 06/12/19 06/12/19 History Diclofenac Sodium Gel [Voltaren 2 gm TOPICAL QID 06/12/19 06/12/19 History Gel] Fluticasone/Vilanterol [Breo 1 puff INHALATION RT-DAILY 06/12/19 06/12/19 History Ellipta 100-25 Mcg Inhaler] Lisinopril [Prinivil] 5 mg PO DAILY 06/12/19 06/12/19 History Ubidecarenone [Co Q-10] 100 mg PO DAILY 06/12/19 06/12/19 History Allergies Allergy/AdvReac Type Severity Reaction Status Date / Time amoxicillin Allergy Unknown Verified 06/12/19 14:11 Childhood Penicillins Allergy Unknown Verified 06/12/19 14:11 Childhood Surgical - Exam Vital Signs Temp Pulse Resp BP Pulse Ox 97.9 F 122 H 18 120/79 100 06/12/19 10:41 06/12/19 10:41 06/12/19 10:41 06/12/19 10:41 06/12/19 10:41 Physical exam: General: Well-developed, well-nourished HEENT: Normocephalic, sclerae nonicteric Abdomen: Nontender, nondistended, multiple midline scars noted Extremities: No edema Neuro: Alert and oriented Results - Labs 06/12/19 11:46 06/12/19 11:46 Abnormal Lab Results - Last 24 Hours (Table) 06/12/19 06/12/19 06/12/19 Range/Units 11:46 11:46 11:46 RBC 2.66 L (3.80-5.40) m/uL Hgb 7.5 L (11.4-16.0) gm/dL Hct 23.6 L (34.0-46.0) % APTT 21.1 L (22.0-30.0) sec Total Bilirubin 0.1 L (0.2-1.3) mg/dL Diabetes panel 06/12/19 Range/Units 11:46 Sodium 138 (137-145) mmol/L Potassium 4.0 (3.5-5.1) mmol/L Chloride 106 (98-107) mmol/L Carbon Dioxide 24 (22-30) mmol/L BUN 13 (7-17) mg/dL Creatinine 0.74 (0.52-1.04) mg/dL Glucose 99 (74-99) mg/dL Calcium 9.0 (8.4-10.2) mg/dL AST 20 (14-36) U/L ALT 17 (4-34) U/L Alkaline Phosphatase 83 (38-126) U/L Total Protein 6.7 (6.3-8.2) g/dL Albumin 3.8 (3.5-5.0) g/dL Calcium panel 06/12/19 Range/Units 11:46 Calcium 9.0 (8.4-10.2) mg/dL Albumin 3.8 (3.5-5.0) g/dL Pituitary panel 06/12/19 Range/Units 11:46 Sodium 138 (137-145) mmol/L Potassium 4.0 (3.5-5.1) mmol/L Chloride 106 (98-107) mmol/L Carbon Dioxide 24 (22-30) mmol/L BUN 13 (7-17) mg/dL Creatinine 0.74 (0.52-1.04) mg/dL Glucose 99 (74-99) mg/dL Calcium 9.0 (8.4-10.2) mg/dL Adrenal panel 06/12/19 Range/Units 11:46 Sodium 138 (137-145) mmol/L Potassium 4.0 (3.5-5.1) mmol/L Chloride 106 (98-107) mmol/L Carbon Dioxide 24 (22-30) mmol/L BUN 13 (7-17) mg/dL Creatinine 0.74 (0.52-1.04) mg/dL Glucose 99 (74-99) mg/dL Calcium 9.0 (8.4-10.2) mg/dL Total Bilirubin 0.1 L (0.2-1.3) mg/dL AST 20 (14-36) U/L ALT 17 (4-34) U/L Alkaline Phosphatase 83 (38-126) U/L Total Protein 6.7 (6.3-8.2) g/dL Albumin 3.8 (3.5-5.0) g/dL Assessment and Plan (1) Upper GI bleed Narrative/Plan: Will proceed with upper endoscopy tomorrow. Keep nothing by mouth after midnight. Hold Plavix. Continue antiacids. Current Visit: Yes Status: Acute Code(s): K92.2 - GASTROINTESTINAL HEMORRHAGE, UNSPECIFIED SNOMED Code(s): 51859155
[2019-06-12 20:11] LABS: HCT 22.4 % (34.0-46.0); Hypochromasia Moderate; MCH 27.7 pg (25.0-35.0); MCHC 30.8 g/dL (31.0-37.0); Platelet Count 370 k/uL (150-450); Poikilocytosis Slight; RBC 2.49 m/uL (3.80-5.40); RDW 14.9 % (11.5-15.5); WBC 9.1 k/uL (3.8-10.6)
[2019-06-12 20:20] LABS: HGB 6.9 gm/dL (11.4-16.0)
--- NOTE | 2019-06-12 20:30 | US ---
EXAMINATION TYPE: US carotid duplex BILAT DATE OF EXAM: 06/12/2019 COMPARISON: NONE CLINICAL HISTORY: bruit. Bruit. HTN. Hyperlipidemia. Smoker. EXAM MEASUREMENTS: RIGHT: Peak Systolic Velocity (PSV) cm/sec ----- Right CCA: 87.5 ----- Right ICA: 129.7 ----- Right ECA: 143.2 ICA/CCA ratio: 1.5 RIGHT: End Diastole cm/sec ----- Right CCA: 28.0 ----- Right ICA: 47.3 ----- Right ECA: 26.9 LEFT: Peak Systolic Velocity (PSV) cm/sec ----- Left CCA: 113.4 ----- Left ICA: 150.3 ----- Left ECA: 181.9 ICA/CCA ratio: 1.3 LEFT: End Diastole cm/sec ----- Left CCA: 46.1 ----- Left ICA: 53.8 ----- Left ECA: 23.9 VERTEBRALS (direction of flow): Right Vertebral: Antegrade Left Vertebral: Antegrade Rhythm: Normal Hyperechoic plaque is seen bilateral carotid bifurcations. Elevated velocities obtained bilateral ICA and bilateral ECA. Hypoechoic area with hyperechoic center seen left neck measurin.7 x 0.8 x 0.6 cm. IMPRESSION: There is antegrade flow in the vertebral arteries. The images and measurements suggest 50-70% stenosi s in both the internal and external carotid arteries bilaterally. Bilateral carotid artery plaque for mation. Criteria for Assigning % of Stenosis / Diameter reduction (Estimation based on the indirect measurements of the internal carotid artery velocities (ICA PSV). 1. Normal (no stenosis)=ICA PSV < 125 cm/s: ratio < 2.0: ICA EDV<40 cm/s. 2. Less than 50% stenosis=ICA PSV < 125 cm/s: ratio < 2.0: ICA EDV<40 cm/s. 3. 50 to 69% stenosis=ICA PSV of 125 to 230 cm/s: ration 2.0 ? 4.0: ICA EDV 40-100 cm/s. 4. Greater than 70% stenosis to near occlusion= ICA PSV > 230 cm/s: ratio > 4.0: ICA EDV > 100 cm/s. 5. Near occlusion= ICA PSV velocities may be low or undetectable: variable ratio and ICA EDV. 6. Total occlusion=unable to detect flow.
[2019-06-12] MEDS: PANTOPRAZOLE 40 MG/10 ML VIAL IVP SCH (21:10)
[2019-06-12] MEDS: MORPHINE SULFATE 4 MG/ML SYRINGE IV PRN (21:10)
[2019-06-13] MEDS: MORPHINE SULFATE 4 MG/ML SYRINGE IV PRN ×2 (03:16→13:49)
[2019-06-13 06:16] LABS: HCT 27.8 % (34.0-46.0); Hypochromasia Slight; MCH 28.6 pg (25.0-35.0); MCHC 31.8 g/dL (31.0-37.0); MCV 89.9 fL (80.0-100.0); Mean Platelet Volume 7.6; Platelet Count 348 k/uL (150-450); Poikilocytosis Slight; RBC 3.09 m/uL (3.80-5.40); RDW 14.8 % (11.5-15.5); WBC 8.4 k/uL (3.8-10.6)
[2019-06-13 06:26] LABS: HGB 8.9 gm/dL (11.4-16.0)
[2019-06-13] MEDS ORDERED: LIDOCAINE 1% INJ 10MG/ML (20 ML MDV) ONE (07:02)
[2019-06-13] MEDS ORDERED: PROPOFOL 10 MG/ML 20 ML VIAL IV ONE (07:02)
[2019-06-13] MEDS ORDERED: IV FLUID CONTINUATION 1,000 ML IV ONE (07:11)
--- NOTE | 2019-06-13 07:16 | P.PCN ---
Date of Procedure: 06/13/19 Procedure(s) Performed: Preoperative Dx: Upper GI bleed, anemia Postoperative Dx: Mild gastritis, small hiatal hernia Procedure: EGD with Bx Anesthesia: Sedation Endoscopist: Dr. Alex Specimens: Antrum Endoscopic Procedure: The patient was on the endoscopy table in the left decubitus position. The Olympus gastroscope was inserted into the oropharynx and passed under direct visualization to the region of the third portion of the duodenum. From that point the scope was slowly withdrawn inspecting all surfaces carefully. There were no neoplastic inflammatory or polypoid lesions throughout the duodenum. The pylorus was widely patent. The stomach was carefully inspected. There was mild gastritis seen. A biopsy of the antrum took place to rule out H. pylori. Retroflexion revealed a small to moderate- sized hiatal hernia. The GE junction was present 2-3 cm above the diaphragmatic hiatus. There was no inflammatory changes noted however. The esophagus was then carefully examined. There were no neoplastic inflammatory or polypoid lesions throughout the visualized esophagus. The patient was then taken to the recovery room in stable condition per anesthesia guidelines. Recommendations: Continue antiacid therapy. No definite upper GI source of bleeding. Will discuss options of colonoscopy with the patient. Resume diet for now.
--- NOTE | 2019-06-13 08:59 | P.PN ---
Progress Note - Text Progress Note Date: 06/13/19 Patient I discussed the endoscopic findings following the procedure. No definite source of bleeding identified. Options of staying longer to proceed with colonoscopy and possible evaluation for small bowel source of bleeding discussed. Given the current pandemic would be reasonable to consider proceeding with this evaluation further as an outpatient. She is interested in being discharged if at all possible. We'll tentatively plan follow-up telehealth visit 1 week. Will discuss with primary service regarding possible discharge. We'll provide antiacid prescription.
[2019-06-13] MEDS ORDERED: ATORVASTATIN 40 MG TAB PO SCH (09:00)
[2019-06-13] MEDS ORDERED: CLOPIDOGREL 75 MG TAB PO SCH (09:00)
[2019-06-13] MEDS ORDERED: ASPIRIN 81 MG PO SCH (09:00)
[2019-06-13] MEDS: PANTOPRAZOLE 40 MG/10 ML VIAL IVP SCH (09:38)
[2019-06-13] MEDS: SODIUM CHLORIDE 0.9% 1,000 ML IV SCH ×2 (09:38→15:17)
--- NOTE | 2019-06-13 12:00 | P.PN ---
Subjective Progress Note Date: 06/13/19 Patient seen and examined lying in bed. Patient underwent EGD this morning, which showed mild gastritis and a small hiatal hernia, with no evidence of an active bleed. Dr. Alex discussed with patient consideration for outpatient colonoscopy. The patient states her shortness of breath is about the same, denies any chest pain. States her bilateral lower extremities continue to have numbness and tingling without rest pain. She denies any visual changes, changes in her speech, or upper/lower extremity weakness. She is not having any abdominal pain at this time. She denies any active bleeding. Patient received 1 unit PRBCs, hemoglobin increased to 8.9 this morning. Plavix is currently on hold. Objective - Vital Signs Vital signs: Vital Signs Temp 98.5 F 06/13/19 05:06 Pulse 86 06/13/19 05:06 Resp 16 06/13/19 05:06 BP 122/67 06/13/19 05:06 Pulse Ox 100 06/13/19 03:43 Intake & Output 06/12/19 06/13/19 06/13/19 18:59 06:59 18:59 Intake Total 70 965 25 Balance 70 965 25 Weight 85.7 kg 86.8 kg Intake: IV 10 30 25 Invasive Line 1 10 30 Intake, IV Titration 375 Amount Sodium Chloride 0.9% 1, 375 000 ml @ 75 mls/hr IV . [id number] [facility] Rx#:[id number] Oral 60 250 Blood Product 310 Rc As-1 Unit 310 [id number] Other: # Voids 1 - Exam General appearance: The patient is alert, oriented, in no acute distress. HET: Head is normocephalic and atraumatic. Neck: Supple without lymphadenopathy. Trachea midline. Bilateral carotid bruits. Heart: S1 S2. Regular rate and rhythm. Lungs: Expiratory wheezes bilaterally. Equal air entry. Abdomen: Soft, nontender, nondistended with bowel sounds. No peritoneal signs. No palpable organomegaly or masses. Extremities: Normal skin color and turgor. No cyanosis, rash, ulceration, clubbing, or edema. Warm to touch. Able to freely move bilateral lower extremities and toes. Positive PT and DP Doppler signal bilaterally. Neurological: No focal deficits. Strength and sensation are grossly intact. Sensorimotor intact, however patient does state that there is some numbness and tingling in bilateral feet. - Labs CBC & Chem 7: 06/13/19 11:29 06/12/19 11:46 Labs: Abnormal Lab Results - Last 24 Hours (Table) 06/12/19 06/12/19 06/12/19 Range/Units 11:46 11:46 11:46 RBC 2.66 L (3.80-5.40) m/uL Hgb 7.5 L (11.4-16.0) gm/dL Hct 23.6 L (34.0-46.0) % MCHC (31.0-37.0) g/dL APTT 21.1 L (22.0-30.0) sec Total Bilirubin 0.1 L (0.2-1.3) mg/dL Crossmatch 06/12/19 06/12/19 06/13/19 Range/Units 13:59 19:45 05:34 RBC 2.49 L 3.09 L (3.80-5.40) m/uL Hgb 6.9 L* 8.9 L D (11.4-16.0) gm/dL Hct 22.4 L 27.8 L (34.0-46.0) % MCHC 30.8 L (31.0-37.0) g/dL APTT (22.0-30.0) sec Total Bilirubin (0.2-1.3) mg/dL Crossmatch See Detail Assessment and Plan Assessment: 1. Acute blood loss anemia. Suspect GI source. Status post 1 unit packed red blood cells. Status post EGD, with no active bleeding. 2. Severe aortoiliac occlusive disease 3. Bilateral carotid bruit 4. Peripheral neuropathy, suspected ischemic in origin 5. Coronary artery disease status post myocardial infarction with cardiac cath eterization and coronary artery balloon angioplasty and stenting performed approximately 8 years prior 6. Approximately 80 pack year tobacco use history 7. Sigmoid diverticula particular disease status post colon resection 8. History of hypertension 9. History of rheumatoid arthritis 10. History of dyslipidemia Plan: Continue to monitor hemoglobin and hematocrit. Transfuse as needed. Carotid duplex showing 50-70% stenosis in bilateral ICA/ECA with antegrade flow. Continue Lipitor, and restart Plavix when deemed safe per surgery. Patient to have further evaluation as an outpatient for vascular disease and carotid disease with Dr. Crenshaw. The above dictated assessment and findings were discussed with Dr. Adams. The impression and plan of care have been directed as dictated.
[2019-06-13 12:07] LABS: HCT 27.7 % (34.0-46.0); HGB 8.7 gm/dL (11.4-16.0); Hypochromasia Moderate; MCH 28.1 pg (25.0-35.0); MCHC 31.3 g/dL (31.0-37.0); MCV 89.8 fL (80.0-100.0); Mean Platelet Volume 7.9; Platelet Count 367 k/uL (150-450); Poikilocytosis Slight; RBC 3.08 m/uL (3.80-5.40); RDW 15.1 % (11.5-15.5); WBC 10.1 k/uL (3.8-10.6)
[2019-06-13 13:38] VITALS: RESP 18
[2019-06-13] MEDS ORDERED: NICOTINE 14MG/24HR PATCH TRANSDERM SCH (14:00)
[2019-06-13] MEDS ORDERED: GABAPENTIN 300 MG CAP PO SCH (16:15)
[2019-06-13 18:13] VITALS: BP 112/70; PULSE 104; TEMP 97.7
--- NOTE | 2019-06-15 23:07 | P.HPIM ---
History of Present Illness H&P Date: 06/13/19 Chief Complaint: weakness Toya Marks is a 53 yo F with PMH significant for tobacco abuse, peripheral vascular disease who presented to the ED complaining of weakness over the past 3 days. She states she has weakened to the point she is unable to stand. She additionally notes melanotic stools over the past few weeks. She denies any significant abdominal pain. She denies any previous similar melanotic or passing red blood per rectum. She does have history of severe diverticular disease requiring a Kaela's procedure and eventually this was taken down with reestablishment of GI continuity. She has a very significant history of tobacco use and at one time was smoking 4 packs of cigarettes daily. She did that for greater than 20 years and now is continuing to use tobacco products smoking approximately 10 cigarettes daily. The patient denies any neurologic symptoms consistent with carotid arterial occlusive disease the patient indicates that she has been experiencing paresthesias of her feet over the past 3 years. No significant change has been noted in the symptoms in the last 3 days. In the ED her vitals were stable, Hgb 7.4 which dropped to 6.9, FOBT negative, labs otherwise stable. j Review of Systems All systems: negative Constitutional: Reports lethargy, Reports malaise, Reports weakness, Denies chills, Denies fever Eyes: denies blurred vision, denies pain Ears, nose, mouth and throat: Denies headache, Denies sore throat Cardiovascular: Denies chest pain, Denies shortness of breath Respiratory: Denies cough Gastrointestinal: Denies abdominal pain, Denies diarrhea, Denies nausea, Denies vomiting Genitourinary: Denies dysuria, Denies hematuria Musculoskeletal: Reports muscle weakness, Denies myalgias Integumentary: Denies pruritus, Denies rash Neurological: Denies numbness, Denies weakness Psychiatric: Denies anxiety, Denies depression Endocrine: Denies fatigue, Denies weight change Past Medical History Past Medical History: Chest Pain / Angina, COPD, Deep Vein Thrombosis (DVT), GERD/Reflux, Hyperlipidemia, Hypertension, Myocardial Infarction ([place]), Rheumatoid Arthritis (RA) Additional Past Medical History / Comment(s): Uterine cancer with surgery, diverticulitis with surgeries/colostomy now reversed with poor healing-being followed by Dr. Alex, UTI/ blood infection after one of her bowel surgeries with extended hospitalization, 2013 possible seizure, vertigo, bilateral carpal tunnel syndrome, bilateral lower leg DVTs, constipation. Last Myocardial Infarction Date:: 2009 History of Any Multi-Drug Resistant Organisms: None Reported Past Surgical History: Bowel Resection, Heart Catheterization With Stent, Hysterectomy, Tonsillectomy Additional Past Surgical History / Comment(s): 4 bowel surgeries, COLOSTOMY X2, reversal of colostomy, colonoscopies. Past Anesthesia/Blood Transfusion Reactions: No Reported Reaction Date of Last Stent Placement:: 2009 Past Psychological History: Anxiety, Depression, Panic Disorder Additional Psychological History / Comment(s): Pt has a room mate. She uses a walker to ambulate. She no longer drives, she uses the bus to get to appts. She is disabled. Smoking Status: Current every day smoker Past Alcohol Use History: Occasional Additional Past Alcohol Use History / Comment(s): STARTED SMOKING AT AGE 14 - SMOKED UP TO 3PPD AND NOW SMOKING 10 CIG PER DAY Past Drug Use History: None Reported - Past Family History Mother Family Medical History: Cancer Father Family Medical History: Cancer Medications and Allergies Home Medications Medication Instructions Recorded Confirmed Type Aspirin EC [Ecotrin Low Dose] 81 mg PO DAILY 08/19/17 06/12/19 History Albuterol Inhaler [Ventolin Hfa 2 puff INHALATION RT-QID PRN 06/12/19 06/12/19 H istory Inhaler] Atorvastatin [Lipitor] 80 mg PO HS 06/12/19 06/12/19 History Cilostazol [Pletal] 100 mg PO BID 06/12/19 06/12/19 History Clopidogrel [Plavix] 75 mg PO DAILY 06/12/19 06/12/19 History Diclofenac Sodium Gel [Voltaren 2 gm TOPICAL QID 06/12/19 06/12/19 History Gel] Fluticasone/Vilanterol [Breo 1 puff INHALATION RT-DAILY 06/12/19 06/12/19 History Ellipta 100-25 Mcg Inhaler] Lisinopril [Prinivil] 5 mg PO DAILY 06/12/19 06/12/19 History Ubidecarenone [Co Q-10] 100 mg PO DAILY 06/12/19 06/12/19 History Gabapentin [Neurontin] 300 mg PO TID #9 cap 06/13/19 Rx Omeprazole [PriLOSEC] 20 mg PO AC-BRKFST #90 cap 06/13/19 Rx Allergies Allergy/AdvReac Type Severity Reaction Status Date / Time amoxicillin Allergy Unknown Verified 06/12/19 14:11 Childhood Penicillins Allergy Unknown Verified 06/12/19 14:11 Childhood Physical Exam General: well nourished, well developed, NAD. Vitals reviewed Eyes: PERRL, EOMI, conjunctiva normal HENT: normocephalic, mucus membranes moist Neck: supple, no JVD Lungs: normal respiratory effort, no wheezes or rales CV: Regular rate and rhythm, no murmur. Peripheral pulses 1+ Abdomen: soft, nondistended, no organomegaly Lymph: no cervical or axillary LAD Skin: warm and dry. Neuro: A&Ox3, normal mood and affect Results CBC & Chem 7: 06/13/19 11:29 06/12/19 11:46 Thrombosis Risk Factor Assmnt - Choose All That Apply Any of the Below Risk Factors Present?: Yes Each Factor Represents 1 point: Age 41-60 years, Obesity (BMI >25), Swollen legs (current) Other Risk Factors: Yes Each Risk Factor Represents 3 Points: History of DVT/PE Other congenital or acquired thrombophilia - If yes, enter type in comment: No Thrombosis Risk Factor Assessment Total Risk Factor Score: 6 Thrombosis Risk Factor Assessment Level: High Risk Assessment and Plan (1) Peripheral vascular disease Status: Acute Code(s): I73.9 - PERIPHERAL VASCULAR DISEASE, UNSPECIFIED SNOMED Code(s): 778683763 (2) Iron deficiency anemia Status: Acute Code(s): D50.9 - IRON DEFICIENCY ANEMIA, UNSPECIFIED SNOMED Code(s): 66428861 (3) Iron deficiency anemia due to chronic blood loss Status: Acute Code(s): D50.0 - IRON DEFICIENCY ANEMIA SECONDARY TO BLOOD LOSS (CHRONIC) SNOMED Code(s): 497860567 (4) Hyperlipemia Status: Acute Code(s): E78.5 - HYPERLIPIDEMIA, UNSPECIFIED SNOMED Code(s): 81670699 Plan: 1. Acute on chronic blood loss anemia. History diverticulosis and complicated surgical history. Consult surgery. Transfuse to maintain hgb >7 2. Peripheral vascular disease. Vascular surgery consult. Weakness multifactorial due to anemia and occlusive disease. Consider stenting intermission coordinator. Continue plavix and lipitor 3. Tobacco abuse. Nicotine replacement therapy
--- NOTE | 2019-06-15 23:09 | P.DS ---
Providers Date of admission: 06/12/19 13:43 Expected date of discharge: 06/13/19 Attending physician: Giancarlo Nuno MD Consults: 06/12/19 13:43 Consult Physician Stat Consulting Provider: Christiano Crenshaw Consult Reason/Comments: PAD, chronic occlusions, aortic narrowing Do you want consulting provider notified?: Yes 06/12/19 13:44 Consult Physician Urgent Consulting Provider: Ray Alex Consult Reason/Comments: Anemia Do you want consulting provider notified?: Yes Primary care physician: Giancarlo Nuno MD - Discharge Diagnosis(es) (1) Peripheral vascular disease Status: Acute (2) Iron deficiency anemia Status: Acute (3) Iron deficiency anemia due to chronic blood loss Status: Acute (4) Hyperlipemia Status: Acute Hospital Course: Toya Marks is a 53 yo F with PMH significant for tobacco abuse, peripheral vascular disease who presented to the ED complaining of weakness over the past 3 days. She states she has weakened to the point she is unable to stand. She additionally notes melanotic stools over the past few weeks. She denies any significant abdominal pain. She denies any previous similar melanotic or passing red blood per rectum. She does have history of severe diverticular disease requiring a Kaela's procedure and eventually this was taken down with reestablishment of GI continuity. She has a very significant history of tobacco use and at one time was smoking 4 packs of cigarettes daily. She did that for greater than 20 years and now is continuing to use tobacco products smoking approximately 10 cigarettes daily. The patient denies any neurologic symptoms consistent with carotid arterial occlusive disease the patient indicates that she has been experiencing paresthesias of her feet over the past 3 years. No significant change has been noted in the symptoms in the last 3 days. In the ED her vitals were stable, Hgb 7.4 which dropped to 6.9, FOBT negative, labs otherwise stable. Pt was transfused 1 U and her Hgb stabilized at 8.7. She was evaluated by general and vascular surgery and thought not to have active bleed and is recommended outpatient follow up. j Patient Condition at Discharge: Serious Plan - Discharge Summary Discharge Rx Participant: No New Discharge Prescriptions: New Omeprazole [PriLOSEC] 20 mg PO AC-BRKFST #90 cap Gabapentin [Neurontin] 300 mg PO TID #9 cap Continue Aspirin EC [Ecotrin Low Dose] 81 mg PO DAILY Albuterol Inhaler [Ventolin Hfa Inhaler] 2 puff INHALATION RT-QID PRN PRN Reason: Shortness Of Breath Lisinopril [Prinivil] 5 mg PO DAILY Fluticasone/Vilanterol [Breo Ellipta 100-25 Mcg Inhaler] 1 puff INHALATION RT-DAILY Cilostazol [Pletal] 100 mg PO BID Diclofenac Sodium Gel [Voltaren Gel] 2 gm TOPICAL QID Clopidogrel [Plavix] 75 mg PO DAILY Atorvastatin [Lipitor] 80 mg PO HS Ubidecarenone [Co Q-10] 100 mg PO DAILY Discharge Medication List Aspirin EC [Ecotrin Low Dose] 81 mg PO DAILY 08/19/17 [History] Albuterol Inhaler [Ventolin Hfa Inhaler] 2 puff INHALATION RT-QID PRN 06/12/19 [History] Atorvastatin [Lipitor] 80 mg PO HS 06/12/19 [History] Cilostazol [Pletal] 100 mg PO BID 06/12/19 [History] Clopidogrel [Plavix] 75 mg PO DAILY 06/12/19 [History] Diclofenac Sodium Gel [Voltaren Gel] 2 gm TOPICAL QID 06/12/19 [History] Fluticasone/Vilanterol [Breo Ellipta 100-25 Mcg Inhaler] 1 puff INHALATION RT- DAILY 06/12/19 [History] Lisinopril [Prinivil] 5 mg PO DAILY 06/12/19 [History] Ubidecarenone [Co Q-10] 100 mg PO DAILY 06/12/19 [History] Gabapentin [Neurontin] 300 mg PO TID #9 cap 06/13/19 [Rx] Omeprazole [PriLOSEC] 20 mg PO AC-BRKFST #90 cap 06/13/19 [Rx] Follow up Appointment(s)/Referral(s): Giancarlo Nuno MD [Primary Care Provider] - 1-2 days Christiano Crenshaw DO [Doctor of Osteopathic Medicine] - 2 Weeks Patient Instructions/Handouts: Iron Rich Diet (ED), Peripheral Artery Disease (ED) Activity/Diet/Wound Care/Special Instructions: hold Plavix and aspirin, reevaluate outpatient with both PCP and Dr. Alex Discharge Disposition: HOME SELF-CARE
== END 2019-06-13 18:46 | disposition home or self-care (01) | DRG 378 ==
LOC: EC 10:40 → 3SCARD 13:43
PROVIDERS: ADMIT Family Medicine; ATTEND Family Medicine
PROC: 0DJ08ZZ Inspection of Upper Intestinal Tract, Via Natural or Artificial Opening Endoscopic (ICD-10-PCS; 2019-06-13)
PROC: 30233N1 Transfusion of Nonautologous Red Blood Cells into Peripheral Vein, Percutaneous Approach (ICD-10-PCS; principal; 2019-06-13 07:30)
DX: K29.71 Gastritis, unspecified, with bleeding (principal); D62 Acute posthemorrhagic anemia; E78.5 Hyperlipidemia, unspecified; F17.210 Nicotine dependence, cigarettes, uncomplicated; F32.9 Major depressive disorder, single episode, unspecified; F41.0 Panic disorder [episodic paroxysmal anxiety]; G62.9 Polyneuropathy, unspecified; I10 Essential (primary) hypertension; I25.10 Atherosclerotic heart disease of native coronary artery without angina pectoris; I25.2 Old myocardial infarction; I73.9 Peripheral vascular disease, unspecified; J44.9 Chronic obstructive pulmonary disease, unspecified; K29.70 Gastritis, unspecified, without bleeding; K29.80 Duodenitis without bleeding; K44.9 Diaphragmatic hernia without obstruction or gangrene; K57.30 Diverticulosis of large intestine without perforation or abscess without bleeding; M06.9 Rheumatoid arthritis, unspecified; Z79.02 Long term (current) use of antithrombotics/antiplatelets; Z79.1 Long term (current) use of non-steroidal anti-inflammatories (NSAID); Z79.82 Long term (current) use of aspirin; Z79.899 Other long term (current) drug therapy; Z85.42 Personal history of malignant neoplasm of other parts of uterus; Z90.710 Acquired absence of both cervix and uterus
CPT/HCPCS: 36415; 43239; 71046; 80053; 82272; 83690; 84484; 85025; 85027; 85610; 85730; 86850; 86900; 86901; 86920; 88305; 93005; 93880; 93922; 93923; 96361; 96374; 96375; 99285

== ENCOUNTER → 2019-07-08 | Outpatient (CLI) | payer MEDICARE, OTHER ==
--- NOTE | 2019-07-08 16:59 | CT ---
EXAMINATION TYPE: CT angio abdomen pelvis DATE OF EXAM: 07/08/2019 COMPARISON: CTA runoff 06/12/2019 HISTORY: iliac occlusive disease, bilateral leg weakness CT DLP: 1202 mGycm CONTRAST: CTA abdominal aorta with 3-D reconstruction is performed without Oral Contrast and without and with I V Contrast, patient injected with 100 mL of Isovue 370. Contrast CTA of the abdominal aorta was performed from the lung apex through the base of the pelvis. 3-D reconstruction imaging obtained at a separate workstation. CONTRAST CT ABDOMEN AND PELVIS ABDOMINAL AORTA: Atheromatous plaque noted of the abdominal aorta without evidence for aneurysm. Maxi mal AP dimension is noted of 0.5 cm. Patent lumen is noted at 9 mm versus 9 mm most recent study. The re is occlusion of the right common iliac artery with reconstitution of the right external and international marketing executive al iliac arteries with the right epigastric artery. Left common iliac artery demonstrates atheromatou s change with high-grade stenosis noted greater than 80%. There Is occlusion of the left external erick ac artery which reconstitutes at the left epigastric artery. Left internal iliac artery is patent. LIVER/GB- No significant abnormality is seen. PANCREAS- No significant abnormality is seen. SPLEEN- No significant abnormality is seen. ADRENALS- No significant abnormality is seen. KIDNEYS/BLADDER- No significant abnormality is seen. BOWEL-hiatal hernia noted. GENITAL ORGANS: No gross abnormality seen. LYMPH NODES- No greater than 1cm abdominal or pelvic lymph nodes are appreciated. OSSEOUS STRUCTURES- No significant abnormality is seen. OTHER- No significant abnormality is seen. 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 2.Left common iliac artery demonstrates atheromatous change with high-grade stenosis noted greater th an 80%. There Is occlusion of the left external iliac artery which reconstitutes at the left epigastr ic artery.
== END | disposition home or self-care (01) ==
LOC: RADCTMAIN 15:26
PROVIDERS: ATTEND Surgery
DX: I70.0 Atherosclerosis of aorta (principal); I25.10 Atherosclerotic heart disease of native coronary artery without angina pectoris; I74.5 Embolism and thrombosis of iliac artery
CPT/HCPCS: 74174; Q9967